=== PATIENT | male | born 1930 | race Caucasian/White ===

== ENCOUNTER 2017-05-06 19:39 | Emergency (ER) | payer MEDICARE ==
[~2017-05-06] VITALS: Ht 188 cm; Wt 108.9 kg
[~2017-05-06 19:39] MED LIST: ACET325T49 PO; ACHD5005 PO; ASPI-892 PO; Albuterol Sulfate INH; BCL10T PO; DCS100C PO; FEXO180T84 PO; FLUO20CA42 PO; FURO20TA PO; GABA300C PO; LEVO750T6 PO; MAGN-47 PO; OMEP-10 PO; POTA10TA36 PO; SIMV80TA3 PO; TMSL.4C PO; ZINC113C8 TP
--- OUTSIDE RECORDS SUMMARY | 2017-05-06 19:43 | XMS REPORT | Continuity of Care Document ---
Author Author [facility] Organization [facility] Address Unknown Phone Unavailable Allergies Active Description Code Type Severity Reaction Onset Reported/Identified Relationship to Patient Clinical Status Yes No Known Drug Allergies [id number] Drug Allergy Unknown N/A 08/15/2014 Medications There is no data. Problems Date Dx Coded Attending Type Code Diagnosis Diagnosed By 08/20/2014 CHANDLER MITCHELL MD Ot 272.0 08/20/2014 CHANDLER MITCHELL MD Ot 272.4 08/20/2014 CHANDLER MITCHELL MD Ot 276.8 08/20/2014 CHANDLER MITCHELL MD Ot 288.60 08/20/2014 CHANDLER MITCHELL MD Ot 311 08/20/2014 CAHNDLER MITCHELL MD Ot 355.9 08/20/2014 CHANDLER MITCHELL MD Ot 401.9 08/20/2014 CHANDLER MITCHELL MD Ot 414.01 08/20/2014 CHANDLER MITCHELL MD Ot 428.0 08/20/2014 CHANDLER MITCHELL MD Ot 438.20 08/20/2014 CHANDLER MITCHELL MD Ot 438.89 08/20/2014 CHANDLER MITCHELL MD Ot 477.9 08/20/2014 CHANDLER MITCHELL MD Ot 486 08/20/2014 CHANDLER MITCHELL MD Ot 530.81 08/20/2014 CHANDLER MITCHELL MD Ot 564.00 08/20/2014 CHANDLER MITCHELL MD Ot 599.0 08/20/2014 CHANDLER MITCHELL MD Ot 600.00 08/20/2014 CHANDLER MITCHELL MD Ot 728.85 08/20/2014 CHANDLER MITCHELL MD Ot 736.79 08/20/2014 CHANDLER MITCHELL MD Ot 790.29 08/20/2014 CHANDLER MITCHELL MD Ot 799.02 08/20/2014 CHANDLER MITCHELL MD Ot 038.9 SEPTICEMIA NOS 08/20/2014 CHANDLER MITCHELL MD Ot 272.0 PURE HYPERCHOLESTEROLEM 08/20/2014 CHANDLER MITCHELL MD Ot 272.4 HYPERLIPIDEMIA NEC/NOS 08/20/2014 CHANDLER MITCHELL MD Ot 276.8 HYPOPOTASSEMIA 08/20/2014 CHANDLER MITCHELL MD Ot 288.60 08/20/2014 CHANDLER MITCHELL MD Ot 311 DEPRESSIVE DISORDER NEC 08/20/2014 CHANDLER MITCHELL MD Ot 355.9 MONONEURITIS NOS 08/20/2014 CHANDLER MITCHELL MD Ot 401.9 HYPERTENSION NOS 08/20/2014 CHANDLER MITCHELL MD Ot 414.01 CORONARY ATHEROSCLEROSIS OF [place] CORON 08/20/2014 CHANDLER MITCHELL MD Ot 428.0 CONGESTIVE HEART FAILURE NOS 08/20/2014 CHANDLER MITCHELL MD Ot 438.20 LATE EFF-CEREBR DIS,HEMIPLEGIA AFFECTING 08/20/2014 CHANDLER MITCHELL MD Ot 438.89 OTH LATE EFFECT-CEREBROVASCULAR DISEASE 08/20/2014 CHANDLER MITCHELL MD Ot 477.9 ALLERGIC RHINITIS NOS 08/20/2014 CHANDLER MITCHELL MD Ot 486 PNEUMONIA, ORGANISM NOS 08/20/2014 CHANDLER MITCHELL MD Ot 530.81 ESOPHAGEAL REFLUX 08/20/2014 CHANDLER MITCHELL MD Ot 564.00 UNSPEC CONSTIPATION 08/20/2014 CHANDLER MITCHELL MD Ot 599.0 08/20/2014 CHANDLER MITCHELL MD Ot 600.00 HYPERTROPHY (BENIGN) OF PROSTATE W/O URI 08/20/2014 CHANDLER MITCHELL MD Ot 728.85 SPASM OF MUSCLE 08/20/2014 CHANDLER MITCHELL MD Ot 736.79 ACQ ANKLE-FOOT DEF NEC 08/20/2014 CHANDLER MITCHELL MD Ot 790.29 OTHER ABNORMAL GLUCOSE 08/20/2014 CHANDLER MITCHELL MD Ot 799.02 HYPOXEMIA 08/20/2014 CHANDLER MITCHELL MD Ot 995.91 SEPSIS 08/20/2014 CHANDLER MITCHELL MD Ot V49.86 DO NOT RESUSCITATE STATUS 01/13/2016 DAVID MCGEE DOI Ot E66.01 MORBID (SEVERE) OBESITY DUE TO EXCESS CA 01/13/2016 DAVID MCGEE DOI Ot E78.00 PURE HYPERCHOLESTEROLEMIA, UNSPECIFIED 01/13/2016 EVERARDO MILLER SHAKA Ot E78.5 HYPERLIPIDEMIA, UNSPECIFIED 01/13/2016 EVERARDO MILLER SHAKA Ot F32.9 MAJOR DEPRESSIVE DISORDER, SINGLE EPISOD 01/13/2016 DAVID MCGEE DOI Ot G47.33 OBSTRUCTIVE SLEEP APNEA (ADULT) (PEDIATR 01/13/2016 MCGEE DO, SHAKA Ot I10 ESSENTIAL (PRIMARY) HYPERTENSION 01/13/2016 SHAKA MCGEE DO Ot I25.10 ATHSCL HEART DISEASE OF [place] CORONARY 01/13/2016 SHAKA MCGEE DO Ot I44.0 ATRIOVENTRICULAR BLOCK, FIRST DEGREE 01/13/2016 SHAKA MCGEE DO Ot I49.3 VENTRICULAR PREMATURE DEPOLARIZATION 01/13/2016 SHAKA MCGEE DO Ot I69.354 HEMIPLGA FOLLOWING CEREBRAL INFRC AFFECT 01/13/2016 SHAKA MCGEE DO Ot J30.2 OTHER SEASONAL ALLERGIC RHINITIS 01/13/2016 SHAKA MCGEE DO Ot J98.11 ATELECTASIS 01/13/2016 SHAKA MCGEE DO Ot K21.9 GASTRO-ESOPHAGEAL REFLUX DISEASE WITHOUT 01/13/2016 SHAKA MCGEE DO Ot N40.0 BENIGN PROSTATIC HYPERPLASIA WITHOUT LOW 01/13/2016 SHAKA MCGEE DO Ot R06.89 OTHER ABNORMALITIES OF BREATHING 01/13/2016 SHAKA MCGEE DO Ot R09.02 HYPOXEMIA 01/13/2016 SHAKA MCGEE DO Ot S72.012A UNSP INTRACAPSULAR FRACTURE OF LEFT FEMU 01/13/2016 SHAKA MCGEE DO Ot W05.0XXA FALL FROM NON-MOVING WHEELCHAIR, INITIAL 01/13/2016 SHAKA MCGEE DO Ot Y92.[address] 01/13/2016 SHAKA MCGEE DO Ot Z66 DO NOT RESUSCITATE 01/13/2016 SHAKA MCGEE DO Ot Z68.36 BODY MASS INDEX (BMI) 36.0-36.9, ADULT 02/24/2016 YAN BOB APRN Ot M25.562 PAIN IN LEFT KNEE 03/18/2016 YAN BOB APRN Ot M25.562 PAIN IN LEFT KNEE 03/29/2016 YAN BOB APRN Ot M25.562 PAIN IN LEFT KNEE Procedures Code Description Performed By Performed On [id number] REPLACE L HIP JT, FEMORAL W METAL, UNCEM 01/11/2016 Results Test Result Range Complete blood count (CBC) with automated white blood cell (WBC) differential - 01/10/16 11:35 Blood leukocytes automated count (number/volume) 15.3 10*3/uL 4.3-11.0 Blood erythrocytes automated count (number/volume) 4.64 10*6/uL 4.35-5.85 Venous blood hemoglobin measurement (mass/volume) 12.9 g/dL 13.3-17.7 Blood hematocrit (volume fraction) 40 % 40-54 Automated erythrocyte mean corpuscular volume 85 [foz_us] 80-99 Automated erythrocyte mean corpuscular hemoglobin (mass per erythrocyte) 28 pg 25-34 Automated erythrocyte mean corpuscular hemoglobin concentration measurement ( mass/volume) 33 g/dL 32-36 Automated erythrocyte distribution width ratio 13.8 % 10.0-14.5 Automated blood platelet count (count/volume) 199 10*3/uL 130-400 Automated blood platelet mean volume measurement 11.3 [foz_us] 7.4-10.4 Automated blood neutrophils/100 leukocytes 85 % 42-75 Automated blood lymphocytes/100 leukocytes 8 % 12-44 Blood monocytes/100 leukocytes 7 % 0-12 Automated blood eosinophils/100 leukocytes 1 % 0-10 Automated blood basophils/100 leukocytes 0 % 0-10 Blood neutrophils automated count (number/volume) 13.0 10*3 1.8-7.8 Blood lymphocytes automated count (number/volume) 1.2 10*3 1.0-4.0 Blood monocytes automated count (number/volume) 1.0 10*3 0.0-1.0 Automated eosinophil count 0.1 10*3/uL 0.0-0.3 Automated blood basophil count (count/volume) 0.0 10*3/uL 0.0-0.1 PT panel in platelet poor plasma by coagulation assay - 01/10/16 11:35 Prothrombin time (PT) in platelet poor plasma by coagulation assay 13.7 s 12.2-14.7 INR in platelet poor plasma or blood by coagulation assay 1.1 0.8-1.4 Activated partial thromboplastin time (aPTT) in platelet poor plasma bycoagulation assay - 01/10/16 11:35 Activated partial thromboplastin time (aPTT) in platelet poor plasma bycoagulation assay 28 s 24-35 Blood manual differential performed detection - 01/10/16 11:35 Blood monocytes/100 leukocytes 7 % NRG Manual blood segmented neutrophils/100 leukocytes 75 % NRG Blood band neutrophils/100 leukocytes 6 % NRG Manual blood lymphocytes/100 leukocytes 12 % NRG Manual eosinophils/100 leukocytes in nose 0 % NRG Manual blood basophils/100 leukocytes 0 % [facility] Blood erythrocyte morphology finding identification NORMAL [facility] Comprehensive metabolic panel - 01/10/16 11:35 Serum or plasma sodium measurement (moles/volume) 137 mmol/L 135-145 Serum or plasma potassium measurement (moles/volume) 4.3 mmol/L 3.6-5.0 Serum or plasma chloride measurement (moles/volume) 104 mmol/L 98-107 Carbon dioxide 20 mmol/L 21-32 Serum or plasma anion gap determination (moles/volume) 13 mmol/L 5-14 Serum or plasma urea nitrogen measurement (mass/volume) 17 mg/dL 7-18 Serum or plasma creatinine measurement (mass/volume) 1.03 mg/dL 0.60-1.30 Serum or plasma urea nitrogen/creatinine mass ratio 17 NRG Serum or plasma creatinine measurement with calculation of estimated glomerular filtration rate > NRG Serum or plasma glucose measurement (mass/volume) 150 mg/dL 70-105 Serum or plasma calcium measurement (mass/volume) 8.8 mg/dL 8.5-10.1 Serum or plasma total bilirubin measurement (mass/volume) 0.7 mg/dL 0.1-1.0 Serum or plasma alkaline phosphatase measurement (enzymatic activity/volume) 114 U/L 40-136 Serum or plasma aspartate aminotransferase measurement (enzymatic activity/ volume) 15 U/L 5-34 Serum or plasma alanine aminotransferase measurement (enzymatic activity/volume ) 9 U/L 0-55 Serum or plasma protein measurement (mass/volume) 7.1 g/dL 6.4-8.2 Serum or plasma albumin measurement (mass/volume) 3.9 g/dL 3.2-4.5 IRON TEST - 01/10/16 11:35 Serum or plasma iron measurement (mass/volume) 70 % 40- 180 Complete urinalysis with reflex to culture - 01/10/16 11:50 Urine color determination YELLOW NRG Urine clarity determination CLEAR NRG Urine pH measurement by test strip 5 5-9 Specific gravity of urine by test strip 1.020 1.016- 1.022 Urine protein assay by test strip, semi-quantitative NEGATIVE NEGATIVE Urine glucose detection by automated test strip NEGATIVE NEGATIVE Erythrocytes detection in urine sediment by light microscopy NEGATIVE NEGATIVE Urine ketones detection by automated test strip NEGATIVE NEGATIVE Urine nitrite detection by test strip NEGATIVE NEGATIVE Urine total bilirubin detection by test strip NEGATIVE NEGATIVE Urine urobilinogen measurement by automated test strip (mass/volume) NORMAL NORMAL Urine leukocyte esterase detection by dipstick NEGATIVE NEGATIVE Automated urine sediment erythrocyte count by microscopy (number/high power field) NONE NRG Automated urine sediment leukocyte count by microscopy (number/high power field ) NONE NRG Bacteria detection in urine sediment by light microscopy NEGATIVE NRG Squamous epithelial cells detection in urine sediment by light microscopy RARE NRG Crystals detection in urine sediment by light microscopy NONE NRG Casts detection in urine sediment by light microscopy PRESENT NRG Mucus detection in urine sediment by light microscopy SMALL NRG Complete urinalysis with reflex to culture NO NRG Hyaline casts detection in urine sediment by light microscopy 0-2 NRG Methicillin resistant Staphylococcus aureus (MRSA) screening culture - 14:15 Methicillin resistant Staphylococcus aureus (MRSA) screening culture NEG NRG Blood type T Indirect antibody screen panel - 01/10/16 15:05 ABO+Rh group OP NRG Transfusion band number [id number] NRG Blood group antibody screen NEGATIVE NRG Complete blood count (CBC) with automated white blood cell (WBC) differential - 01/11/16 04:26 Blood leukocytes automated count (number/volume) 9.8 10*3/uL 4.3-11.0 Blood erythrocytes automated count (number/volume) 4.34 10*6/uL 4.35-5.85 Venous blood hemoglobin measurement (mass/volume) 12.1 g/dL 13.3-17.7 Blood hematocrit (volume fraction) 37 % 40-54 Automated erythrocyte mean corpuscular volume 85 [foz_us] 80-99 Automated erythrocyte mean corpuscular hemoglobin (mass per erythrocyte) 28 pg 25-34 Automated erythrocyte mean corpuscular hemoglobin concentration measurement ( mass/volume) 33 g/dL 32-36 Automated erythrocyte distribution width ratio 13.5 % 10.0-14.5 Automated blood platelet count (count/volume) 173 10*3/uL 130-400 Automated blood platelet mean volume measurement 11.1 [foz_us] 7.4-10.4 Automated blood neutrophils/100 leukocytes 77 % 42-75 Automated blood lymphocytes/100 leukocytes 10 % 12-44 Blood monocytes/100 leukocytes 8 % 0-12 Automated blood eosinophils/100 leukocytes 4 % 0-10 Automated blood basophils/100 leukocytes 0 % 0-10 Blood neutrophils automated count (number/volume) 7.5 10*3 1.8-7.8 Blood lymphocytes automated count (number/volume) 1.0 10*3 1.0-4.0 Blood monocytes automated count (number/volume) 0.8 10*3 0.0-1.0 Automated eosinophil count 0.4 10*3/uL 0.0-0.3 Automated blood basophil count (count/volume) 0.0 10*3/uL 0.0-0.1 Comprehensive metabolic panel - 01/11/16 04:26 Serum or plasma sodium measurement (moles/volume) 138 mmol/L 135-145 Serum or plasma potassium measurement (moles/volume) 4.1 mmol/L 3.6-5.0 Serum or plasma chloride measurement (moles/volume) 107 mmol/L 98-107 Carbon dioxide 21 mmol/L 21-32 Serum or plasma anion gap determination (moles/volume) 10 mmol/L 5-14 Serum or plasma urea nitrogen measurement (mass/volume) 13 mg/dL 7-18 Serum or plasma creatinine measurement (mass/volume) 0.85 mg/dL 0.60-1.30 Serum or plasma urea nitrogen/creatinine mass ratio 15 NRG Serum or plasma creatinine measurement with calculation of estimated glomerular filtration rate > NRG Serum or plasma glucose measurement (mass/volume) 169 mg/dL 70-105 Serum or plasma calcium measurement (mass/volume) 8.2 mg/dL 8.5-10.1 Serum or plasma total bilirubin measurement (mass/volume) 0.8 mg/dL 0.1-1.0 Serum or plasma alkaline phosphatase measurement (enzymatic activity/volume) 97 U/L 40-136 Serum or plasma aspartate aminotransferase measurement (enzymatic activity/ volume) 14 U/L 5-34 Serum or plasma alanine aminotransferase measurement (enzymatic activity/volume ) 12 U/L 0-55 Serum or plasma protein measurement (mass/volume) 6.4 g/dL 6.4-8.2 Serum or plasma albumin measurement (mass/volume) 3.4 g/dL 3.2-4.5 Complete blood count (CBC) with automated white blood cell (WBC) differential - 01/12/16 04:15 Blood leukocytes automated count (number/volume) 8.6 10*3/uL 4.3-11.0 Blood erythrocytes automated count (number/volume) 4.22 10*6/uL 4.35-5.85 Venous blood hemoglobin measurement (mass/volume) 11.7 g/dL 13.3-17.7 Blood hematocrit (volume fraction) 36 % 40-54 Automated erythrocyte mean corpuscular volume 85 [foz_us] 80-99 Automated erythrocyte mean corpuscular hemoglobin (mass per erythrocyte) 28 pg 25-34 Automated erythrocyte mean corpuscular hemoglobin concentration measurement ( mass/volume) 33 g/dL 32-36 Automated erythrocyte distribution width ratio 13.6 % 10.0-14.5 Automated blood platelet count (count/volume) 168 10*3/uL 130-400 Automated blood platelet mean volume measurement 11.5 [foz_us] 7.4-10.4 Automated blood neutrophils/100 leukocytes 66 % 42-75 Automated blood lymphocytes/100 leukocytes 16 % 12-44 Blood monocytes/100 leukocytes 13 % 0-12 Automated blood eosinophils/100 leukocytes 6 % 0-10 Automated blood basophils/100 leukocytes 0 % 0-10 Blood neutrophils automated count (number/volume) 5.7 10*3 1.8-7.8 Blood lymphocytes automated count (number/volume) 1.3 10*3 1.0-4.0 Blood monocytes automated count (number/volume) 1.1 10*3 0.0-1.0 Automated eosinophil count 0.5 10*3/uL 0.0-0.3 Automated blood basophil count (count/volume) 0.0 10*3/uL 0.0-0.1 Comprehensive metabolic panel - 01/12/16 04:15 Serum or plasma sodium measurement (moles/volume) 137 mmol/L 135-145 Serum or plasma potassium measurement (moles/volume) 3.7 mmol/L 3.6-5.0 Serum or plasma chloride measurement (moles/volume) 104 mmol/L 98-107 Carbon dioxide 22 mmol/L 21-32 Serum or plasma anion gap determination (moles/volume) 11 mmol/L 5-14 Serum or plasma urea nitrogen measurement (mass/volume) 10 mg/dL 7-18 Serum or plasma creatinine measurement (mass/volume) 0.96 mg/dL 0.60-1.30 Serum or plasma urea nitrogen/creatinine mass ratio 10 NRG Serum or plasma creatinine measurement with calculation of estimated glomerular filtration rate > NRG Serum or plasma glucose measurement (mass/volume) 155 mg/dL 70-105 Serum or plasma calcium measurement (mass/volume) 7.9 mg/dL 8.5-10.1 Serum or plasma total bilirubin measurement (mass/volume) 0.6 mg/dL 0.1-1.0 Serum or plasma alkaline phosphatase measurement (enzymatic activity/volume) 86 U/L 40-136 Serum or plasma aspartate aminotransferase measurement (enzymatic activity/ volume) 13 U/L 5-34 Serum or plasma alanine aminotransferase measurement (enzymatic activity/volume ) 7 U/L 0-55 Serum or plasma protein measurement (mass/volume) 6.0 g/dL 6.4-8.2 Serum or plasma albumin measurement (mass/volume) 3.1 g/dL 3.2-4.5 Serum or plasma phosphate measurement (mass/volume) - 01/12/16 04:15 Serum or plasma phosphate measurement (mass/volume) 2.4 mg/dL 2.3-4.7 Magnesium - 01/12/16 04:15 Magnesium 1.9 mg/dL 1.8-2.4 Complete blood count (CBC) with automated white blood cell (WBC) differential - 01/13/16 04:45 Blood leukocytes automated count (number/volume) 9.1 10*3/uL 4.3-11.0 Blood erythrocytes automated count (number/volume) 3.85 10*6/uL 4.35-5.85 Venous blood hemoglobin measurement (mass/volume) 10.7 g/dL 13.3-17.7 Blood hematocrit (volume fraction) 33 % 40-54 Automated erythrocyte mean corpuscular volume 86 [foz_us] 80-99 Automated erythrocyte mean corpuscular hemoglobin (mass per erythrocyte) 28 pg 25-34 Automated erythrocyte mean corpuscular hemoglobin concentration measurement ( mass/volume) 32 g/dL 32-36 Automated erythrocyte distribution width ratio 13.4 % 10.0-14.5 Automated blood platelet count (count/volume) 169 10*3/uL 130-400 Automated blood platelet mean volume measurement 11.5 [foz_us] 7.4-10.4 Automated blood neutrophils/100 leukocytes 68 % 42-75 Automated blood lymphocytes/100 leukocytes 15 % 12-44 Blood monocytes/100 leukocytes 11 % 0-12 Automated blood eosinophils/100 leukocytes 6 % 0-10 Automated blood basophils/100 leukocytes 0 % 0-10 Blood neutrophils automated count (number/volume) 6.2 10*3 1.8-7.8 Blood lymphocytes automated count (number/volume) 1.3 10*3 1.0-4.0 Blood monocytes automated count (number/volume) 1.0 10*3 0.0-1.0 Automated eosinophil count 0.6 10*3/uL 0.0-0.3 Automated blood basophil count (count/volume) 0.0 10*3/uL 0.0-0.1 Comprehensive metabolic panel - 01/13/16 04:45 Serum or plasma sodium measurement (moles/volume) 138 mmol/L 135-145 Serum or plasma potassium measurement (moles/volume) 3.6 mmol/L 3.6-5.0 Serum or plasma chloride measurement (moles/volume) 104 mmol/L 98-107 Carbon dioxide 23 mmol/L 21-32 Serum or plasma anion gap determination (moles/volume) 11 mmol/L 5-14 Serum or plasma urea nitrogen measurement (mass/volume) 11 mg/dL 7-18 Serum or plasma creatinine measurement (mass/volume) 0.82 mg/dL 0.60-1.30 Serum or plasma urea nitrogen/creatinine mass ratio 13 NRG Serum or plasma creatinine measurement with calculation of estimated glomerular filtration rate > NRG Serum or plasma glucose measurement (mass/volume) 160 mg/dL 70-105 Serum or plasma calcium measurement (mass/volume) 7.6 mg/dL 8.5-10.1 Serum or plasma total bilirubin measurement (mass/volume) 0.6 mg/dL 0.1-1.0 Serum or plasma alkaline phosphatase measurement (enzymatic activity/volume) 87 U/L 40-136 Serum or plasma aspartate aminotransferase measurement (enzymatic activity/ volume) 15 U/L 5-34 Serum or plasma alanine aminotransferase measurement (enzymatic activity/volume ) 9 U/L 0-55 Serum or plasma protein measurement (mass/volume) 5.8 g/dL 6.4-8.2 Serum or plasma albumin measurement (mass/volume) 3.0 g/dL 3.2-4.5 Encounters ACCT No. Visit Date/Time Discharge Status Pt. Type Provider Facility Loc./Unit Complaint [id number] 02/23/2016 11:28:00 02/23/2016 23:59:59 CLS Outpatient YAN BOB APRN [facility] RAD LT SIDED KNEE PAIN [id number] 01/10/2016 12:15:00 01/13/2016 14:33:00 DIS Inpatient SHAKA MCGEE DO [facility] 4TH L HIP FX [id number] 08/15/2014 15:04:00 08/20/2014 13:13:00 DIS Inpatient PAULA LUQUE, CHANDLER [place] [facility] 4TH PNEUMONIA
--- NOTE | 2017-05-06 19:44 | ED Upper Extremity ---
General Stated Complaint: L FINGER LAC Source: patient Exam Limitations: no limitations History of Present Illness Date Seen by Provider: May 06, 2017 Time Seen by Provider: 19:42 Initial Comments To ER per EMS from home at [facility] where he lives due to prior stroke with reports of Left middle finger laceration after having pinched it in some part of his wheelchair. He has left upper and lower extremity flaccidity as residual deficit of prior stroke Onset: just prior to arrival Severity: mild Pain/Injury Location: left 3rd finger Allergies and Home Medications Allergies Coded Allergies: No Known Drug Allergies (Unverified , 08/15/14) Home Medications Acetaminophen 325 Mg Tablet, 650 MG PO Q4H PRN for PAIN, (Reported) OR FEVER Aspirin 81 Mg Tabec, 81 MG PO DAILY, (Reported) Baclofen 10 Mg Tab, 5 MG PO BID, (Reported) TAKES 1/2 OF A (10 MG) TABLET Cephalexin 500 Mg Capsule, 500 MG PO TID, #9 Prescribed by: AFSHAN LEI on 05/06/172018 Docusate Sodium 100 Mg Cap, 100 MG PO BID, (Reported) Fexofenadine Hcl 180 Mg Tablet, 180 MG PO DAILY PRN for ALLERGIES, (Reported) Fluoxetine Hcl 20 Mg Capsule, 20 MG PO DAILY, (Reported) Furosemide 20 Mg Tablet, 20 MG PO DAILY, (Reported) Gabapentin 300 Mg Capsule, 300 MG PO TID, (Reported) Hydrocodone Bit/Acetaminophen 1 Each Tablet, 1 TAB PO 4 times a day PRN for PAIN , #30 Prescribed by: BRENDAN RUSH on 01/13/16 1059 Magnesium Hydroxide 400 Mg/5 Ml Oral.susp, 45 ML PO Q12H PRN for CONSTIPATION, ( Reported) Omeprazole 20 Mg Capsule.dr, 20 MG PO DAILY, (Reported) Potassium Chloride 10 Meq Tab.prt.sr, 10 MEQ PO DAILY, (Reported) Simvastatin 80 Mg Tablet, 80 MG PO HS, (Reported) Tamsulosin Hcl 0.4 Mg Cap, 0.4 MG PO HS, (Reported) Zinc Oxide 113 Gm Cream..g., TP PRN PRN for REDNESS, (Reported) APPLY TO BUTTOCKS Constitutional: see HPI EENTM: see HPI Respiratory: no symptoms reported Cardiovascular: no symptoms reported Genitourinary: no symptoms reported Musculoskeletal: no symptoms reported Skin: see HPI Psychiatric/Neurological: No Symptoms Reported Past Ldrhjto-Mvvbpu-Xpgevw Hx Patient Social History Recent Hopitalizations: No Immunizations Up To Date Date of Pneumonia Vaccine: Dec 19, 2013 Date of Influenza Vaccine: Jan 05, 2016 Seasonal Allergies Seasonal Allergies: Yes Surgeries Surgeries: Orthopedic Respiratory Respiratory Disorders: Pneumonia Cardiovascular Cardiac Disorders: Coronary Artery Disease, High Cholesterol, Hypertension Neurological Neurological Disorders: Stroke Reproductive System Hx Reproductive Disorders: No Sexually Transmitted Disease: No HIV/AIDS: No Genitourinary Genitourinary Disorders: Benign Prostatic Hyperpl Gastrointestinal Gastrointestinal Disorders: Gastroesophageal Reflux Musculoskeletal Musculoskeletal Disorders: Foot Drop HEENT Loss of Vision: Denies Hearing Impairment: Hard of Hearing Psychosocial Behavioral Health Disorders: Depression Integumentary Skin/Integumentary Disorders: Recent Skin Changes Blood Transfusions Adverse Reaction to a Blood Tr: No Family Medical History Significant Family History: No Pertinent Family Hx Family Medial History: Patient reports no known family medical history. Physical Exam Vital Signs Vital Signs - First Documented 05/06/17 19:39 Temp 95.9 Pulse 68 Resp 18 B/P (MAP) 111/67 (82) Pulse Ox 99 O2 Delivery Room Air Capillary Refill : General Appearance: WD/WN, no apparent distress HEENT: PERRL/EOMI, normal ENT inspection Neck: non-tender, full range of motion Respiratory: no respiratory distress, no accessory muscle use Gastrointestinal: normal bowel sounds, non tender Shoulder: normal inspection, non-tender Elbow/Forearm: normal inspection, non-tender Hand: non-tender, Left, laceration (1 cm laceration to the ulnar side distal phalanx left middle finger.) Neurologic/Psychiatric: alert, normal mood/affect, oriented x 3 Skin: normal color, warm/dry Laceration Repair : Wound Location: Upper Extremities Wound Length (cm): 1 Wound's Depth, Shape: sub Q Irrigated w/ Saline (ccs): 20 Anesthesia: 1% Lidocaine Suture: Prolene Suture Size: 5-0 Number of Sutures: 4 Layer Closure?: 1 Number Deep Layer Sutures: 0 Progress Finger was anesthetized with 1 mL of 2% lidocaine without epinephrine. Wound then scrubbed with chlorhexidine/saline solution then irrigated with 20 mL of the same. Closed with 4 simple interrupted sutures size 5-0 Prolene. Covered with Xeroform and tube gauze. Discharged to home. Progress/Results/Core Measures Results/Orders My Orders Orders - LEI,PETER J MEAT CUTTING BLOCK REPAIRER Dipht,Pertuss(Acell),Tet Adult (Boostrix (05/06/17 19:45) Cephalexin Capsule (Keflex Capsule) (05/06/17 19:45) Lidocaine 2% Injection 20 Ml (Xylocaine (05/06/17 19:45) Hand, Left, 3 Views (05/06/17 19:41) Medications Given in ED Current Medications Medications Dose Ordered Sig/Jw Route Start Time Stop Time Status Last Admin Dose Admin Cephalexin HCl 500 mg ONCE ONCE PO 05/06/17 19:45 05/06/17 19:46 DC 05/06/17 20:09 500 MG Diphtheria/ Tetanus/Acell Pertussis 0.5 ml ONCE ONCE IM 05/06/17 19:45 05/06/17 19:46 DC 05/06/17 20:09 0.5 ML Lidocaine HCl 20 ml ONCE ONCE INJ 05/06/17 19:45 05/06/17 19:46 DC 05/06/17 20:09 20 ML Vital Signs/I&O Vital Sign - Last 12Hours 05/06/17 19:39 Temp 95.9 Pulse 68 Resp 18 B/P (MAP) 111/67 (82) Pulse Ox 99 O2 Delivery Room Air Departure Impression Impression: Primary Impression: Finger laceration Additional Impression: Personal history of stroke with residual effects Disposition: 01 HOME, SELF-CARE Condition: Stable Departure-Patient Inst. Decision time for Depature: 19:43 Referrals: CHANDLER MITCHELL MD (PCP/Family) Primary Care Physician Patient Instructions: Laceration Repair With Stitches (DC) Add. Discharge Instructions: 1. Return to the emergency room in 7 days and stitches out or at your regular doctor's office, or the nurses at your intermediate may take the stitches out in 7-10 days. You may take this dressing off tomorrow and replaced with a simple Band-Aid. Antibiotics as directed Scripts Cephalexin (Keflex) 500 Mg Capsule 500 MG PO TID, #9 CAP Prov: AFSHAN LEI APRN 05/06/17 AFSHAN LEI APRN May 06, 2017 19:44
[2017-05-06] MEDS ORDERED: CEPHALEXIN 250 MG (KEFLEX) CAP PO ONE (19:45)
[2017-05-06] MEDS ORDERED: TETANUS,DIPTH,PERTUSS P/F (BOOSTRIX) 0.5 ML VIAL IM ONE (19:45)
[2017-05-06] MEDS ORDERED: LIDOCAINE 2% 20 ML (XYLOCAINE) VIAL INJ ONE (19:45)
--- NOTE | 2017-05-06 20:18 | Diagnostic Imaging Report ---
INDICATION: Laceration to middle finger. EXAMINATION: Left hand at 7:55 p.m. Three views were obtained. COMPARISON: There are no prior studies available for comparison. FINDINGS: There is no fracture, dislocation or acute bony abnormality evident. The laceration to the middle finger is not well appreciated. There is no radiopaque foreign body identified. The osseous structures are demineralized and there is degenerative disease involving the PIP and DIP joints. IMPRESSION: There is no evidence for an acute bony abnormality or for a radiopaque foreign body. Dictated by: Dictated on workstation # [id number]
[2017-05-06] MEDS ORDERED: CEPH-507 PO (20:19)
[2017-05-06 20:50] VITALS: BP 0/0
== END 2017-05-06 20:50 | disposition home or self-care (01) ==
LOC: ER 19:39 → EDUNIT# 19:39 → ER 20:50
DX: S61.231A Puncture wound without foreign body of left index finger without damage to nail, initial encounter (principal); I25.10 Atherosclerotic heart disease of native coronary artery without angina pectoris; E78.00 Pure hypercholesterolemia, unspecified; I10 Essential (primary) hypertension; K21.9 Gastro-esophageal reflux disease without esophagitis; F32.9 Major depressive disorder, single episode, unspecified; Z23 Encounter for immunization; Z86.73 Personal history of transient ischemic attack (TIA), and cerebral infarction without residual deficits; Z79.52 Long term (current) use of systemic steroids; Z87.01 Personal history of pneumonia (recurrent); W22.09XA Striking against other stationary object, initial encounter
CPT/HCPCS: 12001; 73130; 90715

== ENCOUNTER 2017-08-20 17:02 | Inpatient (IN) | payer MEDICARE ==
[~2017-08-20] VITALS: Ht 188 cm; Wt 109.3 kg
[~2017-08-20 17:02] MED LIST changes: +CEPH-507 PO
--- OUTSIDE RECORDS SUMMARY | 2017-08-20 17:02 | XMS REPORT | Continuity of Care Document ---
Author Author [facility] Organization [facility] Address Unknown Phone Unavailable Allergies Active Description Code Type Severity Reaction Onset Reported/Identified Relationship to Patient Clinical Status Yes No Known Drug Allergies [id number] Drug Allergy Unknown N/A 08/15/2014 Medications There is no data. Problems Date Dx Coded Attending Type Code Diagnosis Diagnosed By 08/20/2014 CHANDLER MITCHELL MD Ot 272.0 08/20/2014 CHANDLER MITCHELL MD Ot 272.4 08/20/2014 CHANDLER MITCHELL MD Ot 276.8 08/20/2014 CHANDLER MITCHELL MD Ot 288.60 08/20/2014 CHANDLER MITCHELL MD Ot 311 08/20/2014 CHANDLER MITCHELL MD Ot 355.9 08/20/2014 CHANDLER MITCHELL [...] MITCHELL MD Ot 414.01 CORONARY ATHEROSCLEROSIS OF [place] CORON 08/20/2014 CHANDLER MITCHELL MD Ot 428.0 [...] DO Ot I25.10 ATHSCL HEART DISEASE OF [place] CORONARY 01/13/2016 SHAKA MCGEE DO Ot I44.0 ATRIOVENTRICULAR BLOCK, FIRST DEGREE 01/13/2016 SHAKA MCGEE DO Ot I49.3 VENTRICULAR PREMATURE DEPOLARIZATION 01/13/2016 SHAKA MCGEE DO Ot I69.354 HEMIPLGA FOLLOWING CEREBRAL INFRC AFFECT 01/13/2016 SHAKA MCGEE DO Ot J30.2 OTHER SEASONAL ALLERGIC RHINITIS 01/13/2016 SHAKA MCGEE DO Ot J98.11 ATELECTASIS 01/13/2016 SHAKA MCGEE DO Ot K21.9 GASTRO-ESOPHAGEAL REFLUX DISEASE WITHOUT 01/13/2016 DAVID MCGEE DOI Ot N40.0 BENIGN PROSTATIC HYPERPLASIA WITHOUT LOW 01/13/2016 SHAKA MCGEE DO Ot R06.89 OTHER ABNORMALITIES OF BREATHING 01/13/2016 SHAKA MCGEE DO Ot R09.02 HYPOXEMIA 01/13/2016 SHAKA MCGEE DO Ot S72.012A UNSP INTRACAPSULAR FRACTURE OF LEFT FEMU 01/13/2016 SHAKA MCGEE DO Ot W05.0XXA FALL FROM NON-MOVING WHEELCHAIR, INITIAL 01/13/2016 SHAKA MCGEE DO Ot Y92.[address] 01/13/2016 SHAKA MCGEE DO Ot Z66 DO NOT RESUSCITATE 01/13/2016 SHAKA MCGEE DO Ot Z68.36 BODY MASS INDEX (BMI) 36.0-36.9, ADULT 02/24/2016 YAN BOB APRN Ot M25.562 PAIN IN LEFT KNEE 03/18/2016 YAN BOB APRN Ot M25.562 PAIN IN LEFT KNEE 03/29/2016 YAN BOB APRN Ot M25.562 PAIN IN LEFT KNEE 05/06/2017 AFSHAN LEI APRN Ot E78.00 PURE HYPERCHOLESTEROLEMIA, UNSPECIFIED 05/06/2017 AFSHAN LEI APRN Ot F32.9 MAJOR DEPRESSIVE DISORDER, SINGLE EPISOD 05/06/2017 AFSHAN LEI APRN Ot I10 ESSENTIAL (PRIMARY) HYPERTENSION 05/06/2017 AFSHAN LEI APRN Ot I25.10 ATHSCL HEART DISEASE OF [place] CORONARY 05/06/2017 AFSHAN LEI APRN Ot K21.9 GASTRO-ESOPHAGEAL REFLUX DISEASE WITHOUT 05/06/2017 AFSHAN LEI APRN Ot S61.213A LACERATION W/O FB OF L MID FINGER W/O DA 05/06/2017 AFSHAN LEI APRN Ot S61.231A PNCTR W/O FB OF L IDX FNGR W/O DAMAGE TO 05/06/2017 AFSHAN LEI APRN Ot W22.09XA STRIKING AGAINST OTHER STATIONARY OBJECT 05/06/2017 AFSHAN LEI APRN Ot Z23 ENCOUNTER FOR IMMUNIZATION 05/06/2017 AFSHAN LEI APRN Ot 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 05/06/2017 AFSHAN LEI APRN Ot Z86.73 PRSNL HX OF TIA (TIA), AND CEREB INFRC W 05/06/2017 AFSHAN LEI APRN Ot Z87.01 PERSONAL HISTORY OF PNEUMONIA (RECURRENT 05/09/2017 AFSHAN LEI APRN Ot E78.00 PURE HYPERCHOLESTEROLEMIA, UNSPECIFIED 05/09/2017 AFSHAN LEI APRN Ot F32.9 MAJOR DEPRESSIVE DISORDER, SINGLE EPISOD 05/09/2017 AFSHAN LEI APRN Ot I10 ESSENTIAL (PRIMARY) HYPERTENSION 05/09/2017 AFSHAN LEI APRN Ot I25.10 ATHSCL HEART DISEASE OF [place] CORONARY 05/09/2017 AFSHAN LEI APRN Ot K21.9 GASTRO-ESOPHAGEAL REFLUX DISEASE WITHOUT 05/09/2017 AFSHAN LEI APRN Ot S61.213A LACERATION W/O FB OF L MID FINGER W/O DA 05/09/2017 AFSHAN LEI APRN Ot S61.231A PNCTR W/O FB OF L IDX FNGR W/O DAMAGE TO 05/09/2017 AFSHAN LEI APRN Ot W22.09XA STRIKING AGAINST OTHER STATIONARY OBJECT 05/09/2017 AFSHAN LEI APRN Ot Z23 ENCOUNTER FOR IMMUNIZATION 05/09/2017 AFSHAN LEI APRN Ot Z79.52 NURSING HOME (CURRENT) USE OF SYSTEMIC STER 05/09/2017 AFSHAN LEI APRN Ot Z86.73 PRSNL HX OF TIA (TIA), AND CEREB INFRC W 05/09/2017 AFSHAN LEI APRN Ot Z87.01 PERSONAL HISTORY OF PNEUMONIA (RECURRENT Procedures Code Description Performed By Performed On [id number] REPLACE L HIP JT, FEMORAL W METAL, [...] NRG Manual blood basophils/100 leukocytes 0 % NRG Blood erythrocyte morphology finding identification NORMAL NR Comprehensive metabolic panel - 01/10/16 11:35 Serum [...] ABO+Rh group OP NRG Transfusion band number [id number] NRG Blood group antibody screen NEGATIVE NRG [...] Status Pt. Type Provider Facility Loc./Unit Complaint [id number] 05/06/2017 19:39:00 05/06/2017 20:50:00 DIS Emergency AFSHAN LEI APRN [facility] ER L FINGER LAC [id number] 02/23/2016 11:28:00 02/23/2016 23:59:59 CLS Outpatient YAN BOB APRN [facility] RAD LT SIDED KNEE PAIN [id number] 01/10/2016 12:15:00 01/13/2016 14:33:00 DIS Inpatient SHAKA MCGEE DO [facility] 4TH L HIP FX [id number] 08/15/2014 15:04:00 08/20/2014 13:13:00 DIS Inpatient PAULA LUQUE, CHANDLER [place] [facility] 4TH PNEUMONIA
--- OUTSIDE RECORDS SUMMARY | 2017-08-20 17:15 | XMS REPORT | Continuity of Care Document ---
Author Author [facility] Organization [facility] Address Unknown Phone Unavailable Allergies Active Description Code Type Severity Reaction Onset Reported/Identified Relationship to Patient Clinical Status Yes No Known Drug Allergies [id number] Drug Allergy Unknown N/A 08/15/2014 Medications There [...] Ot 414.01 CORONARY ATHEROSCLEROSIS OF [place] CORON 08/20/2014 CHANDLER MITCHELL MD Ot 428.0 [...] I25.10 ATHSCL HEART DISEASE OF [place] CORONARY 01/13/2016 SHAKA MGCEE DO Ot I44.0 ATRIOVENTRICULAR BLOCK, FIRST DEGREE [...] SHAKA MCGEE DO Ot Y92.122 BEDROOM IN HALF-WAY PLACE 01/13/2016 SHAKA MCGEE DO Ot Z66 [...] APRN Ot I25.10 ATHSCL HEART DISEASE OF [place] CORONARY 05/06/2017 AFSHAN LEI APRN Ot K21.9 [...] IMMUNIZATION 05/06/2017 AFSHAN LEI APRN Ot 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 Type Provider Facility Loc./Unit Complaint [id number] 05/06/2017 19:39:00 05/06/2017 20:50:00 DIS Emergency AFSHAN LEI APRN [facility] ER L FINGER LAC [id number] 02/23/2016 11:28:00 02/23/2016 23:59:59 CLS Outpatient YAN BOB APRN [facility] RAD LT SIDED KNEE PAIN [id number] 01/10/2016 12:15:00 01/13/2016 14:33:00 DIS Inpatient SHAKA MCGEE DO [facility] 4TH L HIP FX [id number] 08/15/2014 15:04:00 08/20/2014 13:13:00 DIS Inpatient PAULA LUQUE, CHANDLER [place] [facility] 4TH PNEUMONIA
--- NOTE | 2017-08-20 17:18 | ED GU-Male ---
General Stated Complaint: BLOOD IN URINE Source: patient, EMS, detention records History of Present Illness Date Seen by Provider: Aug 20, 2017 Time Seen by Provider: 17:03 Initial Comments PT ARRIVES VIA EMS FROM [facility] PT WAS NOTED TO HAVE HEMATURIA PRIOR TO ARRIVAL PT DOES C/O BURNING ON URINATION NO LOWER ABDOMINAL PAIN, BUT DOES HAVE LOWER BACK PAIN DENIES ANY NAUSEA/VOMITING/DIARRHEA DENIES ANY FEVER/SWEATS/CHILLS PT STATES HE DOES NOT TAKE ANY BLOOD THINNERS, BUT IS ON ASPIRIN DAILY--HAS HISTORY OF CVA WITH LEFT SIDE WEAKNESS PT DENIES ANY HISTORY OF SIMILAR PCP: DR. MITCHELL Allergies and Home Medications Allergies Coded Allergies: No Known Drug Allergies (Unverified , 08/15/14) Home Medications Acetaminophen 325 Mg Tablet, 650 MG PO Q4H PRN for PAIN, (Reported) OR FEVER Aspirin 81 Mg Tabec, 81 MG PO DAILY, (Reported) Baclofen 10 Mg Tab, 5 MG PO BID, (Reported) TAKES 1/2 OF A (10 MG) TABLET Cephalexin 500 Mg Capsule, 500 MG PO TID Prescribed by: AFSHAN LEI on 05/06/172018 Docusate Sodium 100 Mg Cap, 100 MG PO BID, (Reported) Fexofenadine Hcl 180 Mg Tablet, 180 MG PO DAILY PRN for ALLERGIES, (Reported) Fluoxetine Hcl 20 Mg Capsule, 20 MG PO DAILY, (Reported) Furosemide 20 Mg Tablet, 20 MG PO DAILY, (Reported) Gabapentin 300 Mg Capsule, 300 MG PO TID, (Reported) Hydrocodone Bit/Acetaminophen 1 Each Tablet, 1 TAB PO 4 times a day PRN for PAIN Prescribed by: BRENDAN RUSH on 01/13/16 1059 Magnesium Hydroxide 400 Mg/5 Ml Oral.susp, 45 ML PO Q12H PRN for CONSTIPATION, ( Reported) Omeprazole 20 Mg Capsule.dr, 20 MG PO DAILY, (Reported) Potassium Chloride 10 Meq Tab.prt.sr, 10 MEQ PO DAILY, (Reported) Simvastatin 80 Mg Tablet, 80 MG PO HS, (Reported) Tamsulosin Hcl 0.4 Mg Cap, 0.4 MG PO HS, (Reported) Zinc Oxide 113 Gm Cream..g., TP PRN PRN for REDNESS, (Reported) APPLY TO BUTTOCKS Patient Home Medication List Home Medication List Reviewed: Yes Review of Systems Constitutional: no symptoms reported Respiratory: no symptoms reported Cardiovascular: no symptoms reported Gastrointestinal: no symptoms reported Genitourinary: see HPI, burning, dysuria, flank pain, hematuria Musculoskeletal: see HPI, back pain Skin: no symptoms reported Psychiatric/Neurological: No Symptoms Reported Endocrine: No Symptoms Reported Hematologic/Lymphatic: See HPI Past [place]-Vdfrba-Fpatlw Hx Patient Social History Recent Hopitalizations: No Immunizations Up To Date Date of Pneumonia Vaccine: Dec 19, 2013 Date of Influenza Vaccine: Jan 05, 2016 Seasonal Allergies Seasonal Allergies: Yes Past Medical History Surgeries: Yes (LEFT KNEE SCOPE; LEFT HIP REPLACEMENT) Joint Replacement, Orthopedic Respiratory: Yes Pneumonia Cardiac: Yes (CHF) Chronic Edema/Swelling, Coronary Artery Disease, High Cholesterol, Hypertension Neurological: Yes (LEFT SIDE WEAKNESS AND SPASMS) Stroke Reproductive Disorders: No Sexually Transmitted Disease: No HIV/AIDS: No Genitourinary: Yes Benign Prostatic Hyperpl Gastrointestinal: Yes Gastroesophageal Reflux Musculoskeletal: Yes (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 No Pertinent Family Hx Physical Exam Vital Signs Vital Signs - First Documented 08/20/17 17:04 Temp 98.0 Pulse 66 Resp 20 B/P (MAP) 108/67 (81) Pulse Ox 97 O2 Delivery Room Air Capillary Refill : General Appearance: WD/WN, no apparent distress Neck: non-tender Cardiovascular: regular rate, rhythm, no murmur Respiratory: normal breath sounds, no respiratory distress (BUT BREATHING IS SLIGHTLY LABORED--PT DOES NOT C/O FEELING SHORT OF BREATH), no accessory muscle use, decreased breath sounds (IN BASES BILATERALLY) Gastrointestinal: normal bowel sounds, non tender, soft Back: no CVA tenderness Extremities: non-tender, no calf tenderness, normal capillary refill, pedal edema (1+ BILATERALLY. MULTIPLE SCABBED WOUNDS TO ANTERIOR ASPECT OF LOWER LEGS BILATERALLY. 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, alert, normal mood/affect, oriented x 3, other (LEFT SIDE WEAKNESS--PRE-EXISTING) Skin: normal color, warm/dry Procedures/Interventions Suture Size: 5-0 Progress/Results/Core Measures Suspected Sepsis SIRS Temperature: Pulse: Respiratory Rate: Laboratory Tests 08/20/17 17:30: White Blood Count 13.8H Blood Pressure / Mean: Laboratory Tests 08/20/17 17:30: Creatinine 0.90, INR Comment 1.1, Platelet Count 253, Total Bilirubin 0.6 Results/Orders Lab Results Laboratory Tests Test 08/20/17 17:30 08/20/17 17:53 Range/Units White Blood Count 13.8 H 4.3-11.0 10^3/uL Red Blood Count 4.76 4.35-5.85 10^6/uL Hemoglobin 13.3 13.3-17.7 G/DL Hematocrit 41 40-54 % Mean Corpuscular Volume 86 80-99 FL Mean Corpuscular Hemoglobin 28 25-34 PG Mean Corpuscular Hemoglobin Concent 33 32-36 G/DL Red Cell Distribution Width 13.8 10.0-14.5 % Platelet Count 253 130-400 10^3/uL Mean Platelet Volume 10.8 H 7.4-10.4 FL Neutrophils (%) (Auto) 79 H 42-75 % Lymphocytes (%) (Auto) 9 L 12-44 % Monocytes (%) (Auto) 8 0-12 % Eosinophils (%) (Auto) 4 0-10 % Basophils (%) (Auto) 0 0-10 % Neutrophils # (Auto) 10.9 H 1.8-7.8 X 10^3 Lymphocytes # (Auto) 1.2 1.0-4.0 X 10^3 Monocytes # (Auto) 1.1 H 0.0-1.0 X 10^3 Eosinophils # (Auto) 0.5 H 0.0-0.3 10^3/uL Basophils # (Auto) 0.0 0.0-0.1 10^3/uL Prothrombin Time 14.0 12.2-14.7 SEC INR Comment 1.1 0.8-1.4 Activated Partial Thromboplast Time 30 24-35 SEC Sodium Level 138 135-145 MMOL/L Potassium Level 4.4 3.6-5.0 MMOL/L Chloride Level 106 98-107 MMOL/L Carbon Dioxide Level 22 21-32 MMOL/L Anion Gap 10 5-14 MMOL/L Blood Urea Nitrogen 17 7-18 MG/DL Creatinine 0.90 0.60-1.30 MG/DL Estimat Glomerular Filtration Rate > 60 BUN/Creatinine Ratio 19 Glucose Level 115 H 70-105 MG/DL Calcium Level 9.2 8.5-10.1 MG/DL Total Bilirubin 0.6 0.1-1.0 MG/DL Aspartate Amino Transf (AST/SGOT) 12 5-34 U/L Alanine Aminotransferase (ALT/SGPT) 11 0-55 U/L Alkaline Phosphatase 109 40-136 U/L Total Protein 7.8 6.4-8.2 GM/DL Albumin 4.1 3.2-4.5 GM/DL Urine Color RED H Urine Clarity BLOODY H Urine pH 6.5 5-9 Urine Specific [place] 1.020 1.016-1.022 Urine Protein 4+ NEGATIVE Urine Glucose (UA) NEGATIVE NEGATIVE Urine Ketones NEGATIVE NEGATIVE Urine Nitrite NEGATIVE NEGATIVE Urine Bilirubin NEGATIVE NEGATIVE Urine Urobilinogen NORMAL NORMAL MG/DL Urine Leukocyte Esterase 1+ H NEGATIVE Urine RBC (Auto) 5+ H NEGATIVE Urine RBC TNTC H /HPF Urine WBC 50-100 H /HPF Urine Crystals NONE /LPF Urine Bacteria MODERATE H /HPF Urine Casts NONE /LPF Urine Mucus NEGATIVE /LPF Urine Culture Indicated YES My Orders Orders - RUSSELL CAPONE DO Saline Lock/Iv-Start (08/20/17 17:10) Ct Abd/Pelvis Wo(Kidney Stone) (08/20/17 17:10) Cbc With Automated Diff (08/20/17 17:10) Comprehensive Metabolic Panel (08/20/17 17:10) Protime With Inr (08/20/17 17:10) Partial Thromboplastin Time (08/20/17 17:10) Ua Culture If Indicated (08/20/17 17:10) Abdomen/Kub 1view (08/20/17 17:10) Ceftriaxone Injection (Rocephin Injectio (08/20/17 18:15) Urine Culture (08/20/17 17:53) Medications Given in ED Current Medications Medications Dose Ordered Sig/Wj Route Start Time Stop Time Status Last Admin Dose Admin Ceftriaxone Sodium 1000 mg/ Sodium Chloride 50 ml @ 100 mls/hr ONCE ONCE IV 08/20/17 18:15 08/20/17 18:44 08/20/17 18:25 100 MLS/HR Vital Signs/I&O 08/20/17 17:04 Temp 98.0 Pulse 66 Resp 20 B/P (MAP) 108/67 (81) Pulse Ox 97 O2 Delivery Room Air Capillary Refill : Progress Note : Progress Note UNEVENTFUL ER STAY Diagnostic Imaging Comments KUB--LEFT HIP REPLACEMENT, NO ACUTE PROCESS CT ABDOMEN/PELVIS--LEFT PLEURAL EFFUSION AND INFILTRATE/ATELECTASIS, DECOMPRESSED BLADDER. ARTIFACT FROM LEFT HIP REPLACEMENT. ENLARGED PROSTATE. NO ACUTE INTRA-ABDOMINAL PROCESS PER RADIOLOGIST REPORTS @ 1757 Reviewed: Reviewed by Me Departure Communication (Admissions) 1807--SPOKE WITH DR. IRVIN, ACCEPTS PT FOR ADMIT. Impression Primary Impression: UTI WITH GROSS HEMATURIA Additional Impression: LEFT PLEURAL EFFUSION WITH ATELECTASIS/INFILTRATE Disposition: ADMITTED INPATIENT Condition: Stable Admissions Decision to Admit Reason: Admit from ER (General) Decision to Admit/Date: Aug 20, 2017 Time/Decision to Admit Time: 18:05 Departure-Patient Inst. Referrals: CHANDLER MITCHELL MD (PCP/Family) Primary Care Physician RUSSELL CAPONE DO Aug 20, 2017 17:18
[2017-08-20 17:49] LABS: BASOPHILS % (AUTO) 0 % (0-10); EOSINOPHILS # (AUTO) 0.5 10^3/uL (0.0-0.3); EOSINOPHILS % (AUTO) 4 % (0-10); HEMATOCRIT 41 % (40-54); HEMOGLOBIN 13.3 G/DL (13.3-17.7); LYMPHOCYTES # (AUTO) 1.2 X 10^3 (1.0-4.0); LYMPHOCYTES % (AUTO) 9 % (12-44); MEAN CORPUSCULAR HEMOGLOBIN 28 PG (25-34); MEAN CORPUSCULAR HGB CONC 33 G/DL (32-36); MEAN CORPUSCULAR VOLUME 86 FL (80-99); MEAN PLATELET VOLUME 10.8 FL (7.4-10.4); MONOCYTES # (AUTO) 1.1 X 10^3 (0.0-1.0); MONOCYTES % (AUTO) 8 % (0-12); NEUTROPHILS # (AUTO) 10.9 X 10^3 (1.8-7.8); NEUTROPHILS % (AUTO) 79 % (42-75); PLATELET COUNT 253 10^3/uL (130-400); RED BLOOD COUNT 4.76 10^6/uL (4.35-5.85); RED CELL DISTRIBUTION WIDTH 13.8 % (10.0-14.5); WHITE BLOOD COUNT 13.8 10^3/uL (4.3-11.0)
[2017-08-20 17:53] LABS: INR 1.1 (0.8-1.4)
--- NOTE | 2017-08-20 17:53 | Diagnostic Imaging Report ---
PROCEDURE: CT urinary tract, rule out kidney stone. TECHNIQUE: Multiple contiguous axial images were obtained through the abdomen and pelvis without the use of intravenous contrast. INDICATION: Low back pain. Hematuria. FINDINGS: There is left basilar effusion with left lower lobe consolidated infiltrate and atelectasis. Liver appears normal. Gallbladder and bile ducts are normal. The pancreas is normal. The spleen is normal. The adrenal glands appear normal. The kidneys show no evidence of obstruction or calculi. No perinephric edema. The stomach is not distended. Small bowel is not dilated. There is considerable motion artifact present from respiration. Colon shows normal stool and gas pattern. The appendix is visualized and normal. There are no findings to suggest diverticulitis. The lower pelvis is not well visualized due to beam hardening artifact from left hip arthroplasty. The prostate does appear enlarged. Bladder is decompressed. No blastic or lytic bony lesion. IMPRESSION: 1. No evidence of renal calculi or hydronephrosis. Bladder is decompressed. Pelvic detail very limited due to beam hardening artifact. 2. No acute intra-abdominal findings. Dictated by: Dictated on workstation # [id number]
--- NOTE | 2017-08-20 17:56 | Diagnostic Imaging Report ---
INDICATION: Blood in urine. Back pain. FINDINGS: AP pelvis shows left hip arthroplasty. Femoral and acetabular components appearing in good alignment. There are no bony fractures. Bony pelvis is intact. There are no pathologic calcifications noted in the pelvis. IMPRESSION: Arthroplasty left hip with no other abnormalities demonstrated. Dictated by: Dictated on workstation # [id number]
[2017-08-20 18:00] LABS: BILIRUBIN,URINE NEGATIVE (NEGATIVE); CLARITY,URINE BLOODY; COLOR,URINE RED; GLUCOSE, URINE (UA) NEGATIVE (NEGATIVE); KETONES,URINE NEGATIVE (NEGATIVE); LEUKOCYTE ESTERASE ,URINE 1+ (NEGATIVE); NITRITE,URINE NEGATIVE (NEGATIVE); PH,URINE 6.5 (5-9); PROTEIN,URINE 4+ (NEGATIVE); UROBILINOGEN,URINE NORMAL (NORMAL)
[2017-08-20 18:02] LABS: ALANINE AMINOTRANSFERASE 11 U/L (0-55); ALBUMIN 4.1 GM/DL (3.2-4.5); ALKALINE PHOSPHATASE 109 U/L (40-136); BILIRUBIN,TOTAL 0.6 MG/DL (0.1-1.0); BUN/CREATININE RATIO 19; CALCIUM 9.2 MG/DL (8.5-10.1); CARBON DIOXIDE 22 MMOL/L (21-32); CHLORIDE 106 MMOL/L (98-107); GFR ESTIMATED > 60; GLUCOSE 115 MG/DL (70-105); POTASSIUM 4.4 MMOL/L (3.6-5.0); SODIUM 138 MMOL/L (135-145); TOTAL PROTEIN 7.8 GM/DL (6.4-8.2)
[2017-08-20 18:04] LABS: BACTERIA,URINE MODERATE /HPF; RBC,URINE TNTC /HPF; WBC,URINE 50-100 /HPF
[2017-08-20] MEDS ORDERED: cefTRIAXone INJECTION 1,000 MG in NS (IVPB) 50 ML IV ONE (18:15)
--- OUTSIDE RECORDS SUMMARY | 2017-08-20 18:32 | XMS REPORT | Continuity of Care Document ---
Author Author [facility] Organization [facility] Address Unknown Phone Unavailable Allergies Active Description Code Type Severity Reaction Onset Reported/Identified Relationship to Patient Clinical Status Yes No Known Drug Allergies [id number] Drug Allergy Unknown N/A 08/15/2014 Medications There [...] MITCHELL MD Ot 414.01 CORONARY ATHEROSCLEROSIS OF [place] CORON 08/20/2014 CHANDLER MITCHELL MD Ot 428.0 [...] DO Ot I25.10 ATHSCL HEART DISEASE OF [place] CORONARY 01/13/2016 SHAKA MCGEE DO Ot I44.0 [...] SHAKA MCGEE DO Ot Y92.[address] 01/13/2016 SHAKA MCGEE DO Ot Z66 [...] APRN Ot I25.10 ATHSCL HEART DISEASE OF [place] CORONARY 05/06/2017 AFSHAN LEI APRN Ot K21.9 [...] IMMUNIZATION 05/06/2017 AFSHAN LEI APRN Ot Z79.52 STEAM TENDER (CURRENT) USE OF SYSTEMIC STER 05/06/2017 AFSHAN [...] APRN Ot I25.10 ATHSCL HEART DISEASE OF [place] CORONARY 05/09/2017 AFSHAN LEI APRN Ot K21.9 [...] IMMUNIZATION 05/09/2017 AFSHAN LEI APRN Ot Z79.52 LONGTERM (CURRENT) USE OF SYSTEMIC STER 05/09/2017 AFSHAN LEI APRN Ot Z86.73 PRSNL HX OF TIA (TIA), AND CEREB INFRC W 05/09/2017 AFSHAN LEI APRN Ot Z87.01 PERSONAL HISTORY OF PNEUMONIA (RECURRENT Procedures Code Description Performed By Performed On [id number] REPLACE L HIP JT, FEMORAL W METAL, [...] ABO+Rh group OP NRG Transfusion band number [id number] NRG Blood group antibody screen NEGATIVE NRG [...] plasma albumin measurement (mass/volume) 3.0 g/dL 3.2-4.5 Complete blood count (CBC) with automated white blood cell (WBC) differential - 08/20/17 17:30 Blood leukocytes automated count (number/volume) 13.8 10*3/uL 4.3-11.0 Blood erythrocytes automated count (number/volume) 4.76 10*6/uL 4.35-5.85 Venous blood hemoglobin measurement (mass/volume) 13.3 g/dL 13.3-17.7 Blood hematocrit (volume fraction) 41 % 40-54 Automated erythrocyte mean corpuscular volume 86 [foz_us] 80-99 Automated erythrocyte mean corpuscular hemoglobin (mass per erythrocyte) 28 pg 25-34 Automated erythrocyte mean corpuscular hemoglobin concentration measurement ( mass/volume) 33 g/dL 32-36 Automated erythrocyte distribution width ratio 13.8 % 10.0-14.5 Automated blood platelet count (count/volume) 253 10*3/uL 130-400 Automated blood platelet mean volume measurement 10.8 [foz_us] 7.4-10.4 Automated blood neutrophils/100 leukocytes 79 % 42-75 Automated blood lymphocytes/100 leukocytes 9 % 12-44 Blood monocytes/100 leukocytes 8 % 0-12 Automated blood eosinophils/100 leukocytes 4 % 0-10 Automated blood basophils/100 leukocytes 0 % 0-10 Blood neutrophils automated count (number/volume) 10.9 10*3 1.8-7.8 Blood lymphocytes automated count (number/volume) 1.2 10*3 1.0-4.0 Blood monocytes automated count (number/volume) 1.1 10*3 0.0-1.0 Automated eosinophil count 0.5 10*3/uL 0.0-0.3 Automated blood basophil count (count/volume) 0.0 10*3/uL 0.0-0.1 PT panel in platelet poor plasma by coagulation assay - 08/20/17 17:30 Prothrombin time (PT) in platelet poor plasma by coagulation assay 14.0 s 12.2-14.7 INR in platelet poor plasma or blood by coagulation assay 1.1 0.8-1.4 Activated partial thromboplastin time (aPTT) in platelet poor plasma bycoagulation assay - 08/20/17 17:30 Activated partial thromboplastin time (aPTT) in platelet poor plasma bycoagulation assay 30 s 24-35 Comprehensive metabolic panel - 08/20/17 17:30 Serum or plasma sodium measurement (moles/volume) 138 mmol/L 135-145 Serum or plasma potassium measurement (moles/volume) 4.4 mmol/L 3.6-5.0 Serum or plasma chloride measurement (moles/volume) 106 mmol/L 98-107 Carbon dioxide 22 mmol/L 21-32 Serum or plasma anion gap determination (moles/volume) 10 mmol/L 5-14 Serum or plasma urea nitrogen measurement (mass/volume) 17 mg/dL 7-18 Serum or plasma creatinine measurement (mass/volume) 0.90 mg/dL 0.60-1.30 Serum or plasma urea nitrogen/creatinine mass ratio 19 NRG Serum or plasma creatinine measurement with calculation of estimated glomerular filtration rate > NRG Serum or plasma glucose measurement (mass/volume) 115 mg/dL 70-105 Serum or plasma calcium measurement (mass/volume) 9.2 mg/dL 8.5-10.1 Serum or plasma total bilirubin measurement (mass/volume) 0.6 mg/dL 0.1-1.0 Serum or plasma alkaline phosphatase measurement (enzymatic activity/volume) 109 U/L 40-136 Serum or plasma aspartate aminotransferase measurement (enzymatic activity/ volume) 12 U/L 5-34 Serum or plasma alanine aminotransferase measurement (enzymatic activity/volume ) 11 U/L 0-55 Serum or plasma protein measurement (mass/volume) 7.8 g/dL 6.4-8.2 Serum or plasma albumin measurement (mass/volume) 4.1 g/dL 3.2-4.5 Complete urinalysis with reflex to culture - 08/20/17 17:53 Urine color determination RED NRG Urine clarity determination BLOODY NRG Urine pH measurement by test strip 6.5 5-9 Specific gravity of urine by test strip 1.020 1.016- 1.022 Urine protein assay by test strip, semi-quantitative 4+ NEGATIVE Urine glucose detection by automated test strip NEGATIVE NEGATIVE Erythrocytes detection in urine sediment by light microscopy 5+ NEGATIVE Urine ketones detection by automated test strip NEGATIVE NEGATIVE Urine nitrite detection by test strip NEGATIVE NEGATIVE Urine total bilirubin detection by test strip NEGATIVE NEGATIVE Urine urobilinogen measurement by automated test strip (mass/volume) NORMAL NORMAL Urine leukocyte esterase detection by dipstick 1+ NEGATIVE Automated urine sediment erythrocyte count by microscopy (number/high power field) TNTC NRG Automated urine sediment leukocyte count by microscopy (number/high power field ) [HPF] NRG Bacteria detection in urine sediment by light microscopy MODERATE NRG Crystals detection in urine sediment by light microscopy NONE NRG Casts detection in urine sediment by light microscopy NONE NRG Mucus detection in urine sediment by light microscopy NEGATIVE NRG Complete urinalysis with reflex to culture YES NRG Encounters ACCT No. Visit Date/Time Discharge Status Pt. Type Provider Facility Loc./Unit Complaint [id number] 05/06/2017 19:39:00 05/06/2017 20:50:00 DIS Emergency AFSHAN LEI HEARING AIDE TECHNICIAN [facility] ER L FINGER LAC [id number] 02/23/2016 11:28:00 02/23/2016 23:59:59 CLS Outpatient YAN BOB APRN [facility] RAD LT SIDED KNEE PAIN [id number] 01/10/2016 12:15:00 01/13/2016 14:33:00 DIS Inpatient SHAKA MCGEE DO [facility] 4TH L HIP FX [id number] 08/15/2014 15:04:00 08/20/2014 13:13:00 DIS Inpatient PAULA LUQUE, CHANDLER [place] [facility] 4TH PNEUMONIA [id number] 08/20/2017 17:50:00 Document Registration
[2017-08-20 19:00] VITALS: BP 130/62
[2017-08-20] MEDS ORDERED: 1/2 NS IV SOLUTION 1,000 ML IV ONE (20:21)
[2017-08-20] MEDS: 1/2 NS IV SOLUTION 1,000 ML IV SCH (20:28)
[2017-08-21] VITALS (7 sets, daily range): BP systolic 106–135; BP diastolic 59–70
[2017-08-21 04:37] LABS: BASOPHILS % (AUTO) 0 % (0-10); EOSINOPHILS # (AUTO) 0.4 10^3/uL (0.0-0.3); EOSINOPHILS % (AUTO) 3 % (0-10); HEMATOCRIT 39 % (40-54); HEMOGLOBIN 12.6 G/DL (13.3-17.7); LYMPHOCYTES # (AUTO) 1.1 X 10^3 (1.0-4.0); LYMPHOCYTES % (AUTO) 9 % (12-44); MEAN CORPUSCULAR HGB CONC 33 G/DL (32-36); MEAN CORPUSCULAR VOLUME 84 FL (80-99); MEAN PLATELET VOLUME 10.3 FL (7.4-10.4); MONOCYTES # (AUTO) 0.8 X 10^3 (0.0-1.0); MONOCYTES % (AUTO) 7 % (0-12); NEUTROPHILS # (AUTO) 9.6 X 10^3 (1.8-7.8); NEUTROPHILS % (AUTO) 81 % (42-75); PLATELET COUNT 247 10^3/uL (130-400); RED BLOOD COUNT 4.59 10^6/uL (4.35-5.85); WHITE BLOOD COUNT 11.9 10^3/uL (4.3-11.0)
[2017-08-21 04:41] LABS: MEAN CORPUSCULAR HEMOGLOBIN 27 PG (25-34)
[2017-08-21 05:02] LABS: ALANINE AMINOTRANSFERASE < 6 U/L (0-55); ALBUMIN 3.4 GM/DL (3.2-4.5); ALKALINE PHOSPHATASE 97 U/L (40-136); BILIRUBIN,TOTAL 0.8 MG/DL (0.1-1.0); BUN/CREATININE RATIO 18; CALCIUM 8.6 MG/DL (8.5-10.1); CARBON DIOXIDE 19 MMOL/L (21-32); CHLORIDE 107 MMOL/L (98-107); CREATININE SERUM 0.74 MG/DL (0.60-1.30); GFR ESTIMATED > 60; GLUCOSE 131 MG/DL (70-105); POTASSIUM 4.1 MMOL/L (3.6-5.0); SODIUM 136 MMOL/L (135-145); TOTAL PROTEIN 6.8 GM/DL (6.4-8.2)
[2017-08-21] MEDS: 1/2 NS IV SOLUTION 1,000 ML IV SCH ×2 (06:08→16:22)
[2017-08-21] MEDS ORDERED: SIMV80TA2 PO (09:01)
[2017-08-21] MEDS ORDERED: FLUO10CA29 PO (09:01)
[2017-08-21] MEDS ORDERED: POLY17PO6 PO (09:01)
[2017-08-21] MEDS ORDERED: FLUT16SP22 NS (09:01)
[2017-08-21] MEDS ORDERED: LATA2.5D5 OU (09:01)
[2017-08-21] MEDS ORDERED: FAMO-119 PO (09:01)
[2017-08-21] MEDS ORDERED: TIMO5DRO31 OU (09:01)
[2017-08-21] MEDS ORDERED: DORZ10DR18 OU (09:01)
[2017-08-21] MEDS ORDERED: BACL10TA PO (09:01)
[2017-08-21] MEDS ORDERED: HYDR-3820 PO (09:04)
[2017-08-21] MEDS ORDERED: DIPH25CA79 PO (09:04)
[2017-08-21] MEDS ORDERED: CATHETER FLUSH 10 ML SYR IV PRN (09:15)
[2017-08-21] MEDS: HYDROcodone/APAP 10 MG/325 MG (LORTAB) TAB PO PRN ×2 (09:38→17:53)
--- NOTE | 2017-08-21 10:16 | History & Physical-Hospitalist ---
History of Present Illness HPI/Chief Complaint Pt is an 86yoCM with a PMH of CVA, CAD, HTN, HLD who presented to the ER from [facility] for evaluation on hematuria. He does not know when it started. He states the nurse told him yesterday that there was blood in his urine but that was the first time he had noticed it. He has noticed dysuria for the past few days. He also states his "dribbling" has been worse then normal and he has increased frequency. He otherwise has not complaints. He does not normally have a catheter in place. he denies a history of hematuria in the past. He was febrile this morning on vitals check but he denies any fever or chills. Source: patient Exam Limitations: no limitations Date Seen 08/21/17 Time Seen by Provider: 10:14 Attending Physician Carloz Meyers MD PCP Carloz Meyers MD Referring Physician Date of Admission Aug 20, 2017 at 18:27 Home Medications & Allergies Home Medications Reviewed patient Home Medication Reconciliation performed by pharmacy medication reconciliations technician support association and/or nursing. Patients Allergies have been reviewed. Allergies Allergies Coded Allergies No Known Drug Allergies (Unverified08/15/14) Past Sqmnmaw-Acylua-Rhrpyf Hx Past Med/Social Hx: Reviewed Nursing Past Med/Soc Hx Patient Social History Employed/Student: retired Alcohol Use: Past History Recreational Drug Use: No Smoking Status: Never a Smoker Physical Abuse Screen: No Sexual Abuse: No Recent Foreign Travel: No Contact w/other who traveled: No Recent Hopitalizations: No Recent Infectious Disease Expo: No Immunizations Up To Date Pediatric: No Date of Pneumonia Vaccine: Dec 26, 2015 Date of Influenza Vaccine: Jan 05, 2016 Seasonal Allergies Seasonal Allergies: No Past Medical History Surgeries: Joint Replacement, Orthopedic Respiratory: Pneumonia Cardiac: Chronic Edema/Swelling, Coronary Artery Disease, High Cholesterol, Hypertension Neurological: Stroke Reproductive: No Sexually Transmitted Disease: No HIV/AIDS: No Genitourinary: Benign Prostatic Hyperpl, Prostate Problems Gastrointestinal: Gastroesophageal Reflux Musculoskeletal: Chronic Back Pain HEENT: Glaucoma Loss of Vision: Denies Hearing Impairment: Hard of Hearing Psychosocial: Depression Skin/Integumentary: Recent Skin Changes History of Blood Disorders: No Adverse Reaction to Blood Diaz: No Family History Patient reports no known family medical history. No Pertinent Family Hx Review of Systems Constitutional: No chills, No fever EENTM: No blurred vision, No double vision, No nose congestion, No throat pain Respiratory: No cough, No dyspnea on exertion, No short of breath Cardiovascular: No chest pain, No edema, No palpitations Gastrointestinal: No abdominal pain, No constipation, No diarrhea, No nausea, No vomiting Genitourinary: dysuria, frequency, hematuria, hesitancy Musculoskeletal: No joint pain, No muscle pain Skin: No lesions, No rash Psychiatric/Neurological: Denies Headache, Denies Numbness, Denies Tingling Physical Exam Physical Exam Vital Signs Vital Signs - First Documented 08/20/17 17:04 Temp 98.0 Pulse 66 Resp 20 B/P (MAP) 108/67 (81) Pulse Ox 97 O2 Delivery Room Air Capillary Refill : Less Than 3 Seconds General Appearance: No Apparent Distress, Chronically ill HEENT: PERRL/EOMI, Moist Mucous Membranes Neck: Non Tender, Supple Respiratory: Lungs Clear, No Respiratory Distress Cardiovascular: Regular Rate, Rhythm, No Murmur Gastrointestinal: Normal Bowel Sounds, Non Tender, Soft Genital/Rectal: Other (Chow in place with red transparent urine) Extremity: Normal Capillary Refill, No Calf Tenderness Neurologic/Psychiatric: Alert, Oriented x3, Normal Mood/Affect Skin: Normal Color, Warm/Dry Results Results/Procedures Labs Laboratory Tests 08/20/17 17:30 08/21/17 04:22 Patient resulted labs reviewed. Imaging: Reviewed Imaging Report Assessment/Plan Admission Diagnosis UTi with macroscopic hematuria Admission Status: Inpatient Order (span 2 midnights) Reason for Inpatient Admission: UTI with gross hematuria, needs IV abx, urology consult Diagnosis/Problems Diagnosis/Problems (1) UTI (urinary tract infection) Assessment & Plan: Continue on IV abx Await culture and sensitivity Does not meet sepsis criteria (Leukocytosis <12k) Qualifiers: Urinary tract infection type: acute cystitis Hematuria presence: with hematuria Qualified Codes: N30.01 - Acute cystitis with hematuria (2) Hematuria Assessment & Plan: Continue chow placement Urine appears to be clearing will hold off on CBI Urology consult, appreciate recs Qualifiers: Hematuria type: gross Qualified Codes: R31.0 - Gross hematuria (3) Personal history of stroke with residual effects Status: Acute Assessment & Plan: left sided weakness at base line Will consult PT/OT Hold ASA due to hematuria (4) Prophylactic measure Assessment & Plan: SCDs only HH NS @ 100ml/hr Clinical Quality Measures DVT/VTE Risk/Contraindication: Risk Factor Score Per Nursin RFS Level Per Nursing on Admit: 4+=Very High CHIARA IRVIN MD Aug 21, 2017 10:16
[2017-08-21] MEDS ORDERED: MILK OF MAGNESIA 400 MG/5 ML 30 ML UDC PO PRN (13:45)
[2017-08-21] MEDS ORDERED: NON-FORMULARY MEDICATION 1 EA EA (Polyethylene Glycol 3350 (Miralax) 17 GM) PO PRN (13:45)
[2017-08-21] MEDS ORDERED: ACETAMINOPHEN 325 MG TABLET/CAPLET (TYLENOL) PO PRN (13:45)
[2017-08-21] MEDS ORDERED: LORATADINE (CLARITIN) 10 MG TAB PO PRN (14:00)
[2017-08-21] MEDS ORDERED: POLYETHYLENE GLYCOL 17 GM (MIRALAX) PACK PO PRN (14:00)
[2017-08-21] MEDS: BACLOFEN 10 MG (LIORESAL) TAB PO SCH ×2 (14:15→20:35)
[2017-08-21] MEDS: cefTRIAXone 1 GM/NS 50 ML IVPB IV SCH ×2 (17:28)
[2017-08-21] MEDS: SIMvastatin 40 MG (ZOCOR) TAB PO SCH (20:34)
[2017-08-21] MEDS: DOCUSATE SODIUM 100 MG (COLACE) CAP PO SCH (20:34)
[2017-08-21] MEDS: TAMSULOSIN 0.4 MG (FLOMAX) CAP PO SCH (20:34)
[2017-08-21] MEDS: GABAPENTIN 300 MG (NEURONTIN) CAP PO SCH (20:34)
[2017-08-21] MEDS: LATANOPROST 0.005% (XALATAN) OPHTH SOLN 2.5 ML OP SCH (20:36)
[2017-08-21] MEDS: DORZOLAMIDE/TIMOLOL (COSOPT) 2-0.68% 10 ML BTL OP SCH (20:37)
[2017-08-21] MEDS: FLUoxetine HCL 10 MG (PROzac) CAPSULE/TABLET PO SCH (20:40)
[2017-08-21] MEDS ORDERED: DORZOLAMIDE HCL OP SCH (21:00)
[2017-08-21] MEDS ORDERED: NON-FORMULARY MEDICATION 1 EA EA (Simvastatin 80 MG) PO SCH (21:00)
[2017-08-21] MEDS ORDERED: FLUOXETINE HCL 30 MG PO SCH (21:00)
[2017-08-21] MEDS ORDERED: TIMOLOL MALEATE OP SCH (21:00)
[2017-08-22] VITALS: BP 135/72
[2017-08-22] MEDS: 1/2 NS IV SOLUTION 1,000 ML IV SCH ×3 (02:53→20:47)
[2017-08-22 04:00] VITALS: BP 148/67
[2017-08-22] MEDS: HYDROcodone/APAP 10 MG/325 MG (LORTAB) TAB PO PRN ×3 (04:28→17:41)
[2017-08-22] MEDS: KCL 10 MEQ TAB (MICRO K) PO SCH (06:04)
[2017-08-22 08:03] VITALS: BP 125/60
[2017-08-22] MEDS ORDERED: NON-FORMULARY MEDICATION 1 EA EA (Famotidine (Pepcid) 20 MG) PO SCH (09:00)
[2017-08-22] MEDS ORDERED: NON-FORMULARY MEDICATION 1 EA EA (Potassium Chloride (K-Dur) 10 MEQ) PO SCH (09:00)
[2017-08-22] MEDS: DOCUSATE SODIUM 100 MG (COLACE) CAP PO SCH ×2 (09:25→20:31)
[2017-08-22] MEDS: FAMOTIDINE 20 MG (PEPCID) TABLET PO SCH (09:25)
[2017-08-22] MEDS: FUROSEMIDE 20 MG (LASIX) TAB PO SCH (09:25)
[2017-08-22] MEDS: DORZOLAMIDE/TIMOLOL (COSOPT) 2-0.68% 10 ML BTL OP SCH ×2 (09:25→20:31)
[2017-08-22] MEDS: GABAPENTIN 300 MG (NEURONTIN) CAP PO SCH ×3 (09:25→20:31)
[2017-08-22] MEDS: FLUTICASONE NASAL SPRAY (FLONASE) 16 GM BTL NS SCH (09:26)
[2017-08-22] MEDS ORDERED: ASPI-983 PO (10:31)
[2017-08-22] MEDS ORDERED: FURO20TA4 PO (10:31)
[2017-08-22] MEDS ORDERED: TR1C15 TP (10:31)
[2017-08-22] MEDS ORDERED: DOCU100C37 PO (10:31)
[2017-08-22] MEDS ORDERED: BACL10TA PO (10:31)
[2017-08-22] MEDS ORDERED: FEXO-46 PO (10:31)
[2017-08-22] MEDS ORDERED: TAMS0.4C2 PO (10:31)
[2017-08-22] MEDS ORDERED: POTA10CA43 PO (10:31)
[2017-08-22] MEDS ORDERED: MAGN400O7 PO (10:31)
[2017-08-22] MEDS ORDERED: GABA-488 PO (10:31)
[2017-08-22] MEDS ORDERED: ZINC57OI8 TP (10:31)
--- NOTE | 2017-08-22 11:17 | Physical Therapy Evaluation ---
PT Evaluation-General Medical Diagnosis Admission Date Aug 21, 2017 at 10:54 Medical Diagnosis: hematuria, pleural effusion Onset Date: Aug 20, 2017 Therapy Diagnosis Therapy Diagnosis: impaired mobility, strength, balance, left hemiparesis Height/Weight Height (Feet): 6 Height (Inches): 2.00 Weight (Pounds): 241 Weight (Ounces): 0.0 Precautions Precautions/Isolations: Fall Prevention, Standard Precautions, Pressure Ulcer Weight Bear Status Right Lower Extremity: Right Weight Bearing/Tolerated Left Lower Extremity: Left Weight Bearing/Tolerated Referral Physician: Priya Heaton MD Reason for Referral: Evaluation/Treatment Medical History Pertinent Medical History: CAD, CVA, GERD, Heart Failure, HTN Additional Medical History Past Medical History Surgeries: Joint Replacement, Orthopedic Respiratory: Pneumonia Cardiac: Chronic Edema/Swelling, Coronary Artery Disease, High Cholesterol, Hypertension Neurological: Stroke Reproductive: No Sexually Transmitted Disease: No HIV/AIDS: No Genitourinary: Benign Prostatic Hyperpl, Prostate Problems Gastrointestinal: Gastroesophageal Reflux Musculoskeletal: Chronic Back Pain HEENT: Glaucoma Loss of Vision: Denies Hearing Impairment: Hard of Hearing Psychosocial: Depression Skin/Integumentary: Recent Skin Changes History of Blood Disorders: No Adverse Reaction to Blood Diaz: No Current History Patient came to ER from [facility] with hematuria. Reviewed History: Yes Social History Home: Retirement Prior/Core FIM Prior Level of Function Functional [place] Measure 0=Not Assessed/NA 4=Minimal Assistance 1=Total Assistance 5=Supervision or Setup 2=Maximal Assistance 6=Modified [place] 3=Moderate Assistance 7=Complete [place] Bed Mobility: 2 Transfers (B,C,W/C) (FIM): 2 Patient is non-ambulatory and he states he has a power wheelchair which is not here at the hospital PT Evaluation-Current Subjective Patient in bed pre tx, agrees to PT, has pain in his left leg 6/10. Patient states his left leg is hypersensitive. Pt/Family Goals "to get stronger" Objective Patient Orientation: Person, Place, Situation Attachments: Garcia Catheter, IV ROM/Strength ROM Lower Extremities limited bilaterally Strength Lower Extremities 0/5 gross LLE, RLE hip flexion 3-/5, knee extension 4/5, knee flexion 4/5, dorsiflexion 4-/5 Neuromuscular (Tone, Coordination, Reflexes) NT Sensory Vision: Functional Hearing: Functional Sensation Right Lower Extremit: Intact Sensation Left Lower Extremity: Intact Sensation Lower Extremities Patient has no complaints of numbness or tingling. Transfers Functional [place] Measure 0=Not Assessed/NA 4=Minimal Assistance 1=Total Assistance 5=Supervision or Setup 2=Maximal Assistance 6=Modified [place] 3=Moderate Assistance 7=Complete [place] Transfers (B, C, W/C) (FIM): 2 Scootin Rollin Supine to/from Sit: 2 Sit to/from Stand: 2 bed t/f WC(FIM only if WC use): 2 Patient needs assist with both legs for supine to sit, max assist for sit to stand and stand pivot transfer. Patient was placed at the edge of the bed and it was seen that he had a BM and needed to be cleaned. He was stood and cleaned and then sat back down. He was then transferred to a recliner at bedside and then changed his gown. Balance Sitting Static: Fair Sitting Dynamic: Fair Standing Static: Poor Standing Dynamic: Poor Treatment seated exercises with right leg x15 (AP, LAQ, hip flexion) Assessment/Needs Patient has impaired mobility, strength, endurance, balance, has left hemiparesis Rehab Potential: Poor PT Short Term Goals Short Term Goals Time Frame: Aug 29, 2017 Transfers (B,C,W/C) (FIM): 3 Wheelchair (FIM): 5 (with power chair if he can get it here) Wheelchair Distance: 150' Wheelchair Level of Assist: 5 PT Plan Problem List Problem List: Activity Tolerance, Functional Strength, Safety, Balance, Transfer, Bed Mobility, ROM Treatment/Plan Treatment Plan: Continue Plan of Care Treatment Plan: Bed Mobility, Concurrent Therapy, Education, Functional Activity Melissa, Functional Strength, Safety, Therapeutic Exercise, Transfers Treatment Duration: Aug 29, 2017 Frequency: 6 times per week Estimated Hrs Per Day: .25 hour per day (15-30') Patient and/or Family Agrees t: Yes Safety Risks/Education Patient Education: Transfer Techniques, Correct Positioning, Safety Issues Teaching Recipient: Patient Teaching Methods: Demonstration, Discussion Response to Teaching: Reinforcement Needed Discharge Recommendations Plan Patient will perform bed mobility and transfer training, balance and endurance training, functional strengthening, wheelchair mobility training, and education , to improve functional mobility and independence at home. Therapy D/C Recommendations: Correction (TCU/NH) Time/GCodes Time In: 1050 Time Out: 1110 Total Billed Treatment Time: 20 Total Billed Treatment 1 visit EVH 20' G Codes Necessary: Yes PT/OT Therapy GCodes Therapy Functional Limitation: Physical Therapy Test(s)/Tool used to determine: Level of Assistance Scale Functional Limitation-Current Charge Code: ALFONZO Modifier: SAEID Functional Limitation-Goal Charge Code: NATHEN Modifier: SVITLANA SPARKS PT Aug 22, 2017 11:17
[2017-08-22 12:00] VITALS: BP 110/58
[2017-08-22] MEDS: BACLOFEN 10 MG (LIORESAL) TAB PO SCH ×2 (13:00→20:31)
--- NOTE | 2017-08-22 14:26 | Occupational Therapy Eval ---
OT Evaluation-General/PLF Medical Diagnosis Admission Date Aug 21, 2017 at 10:54 Medical Diagnosis: hematuria, pleural effusion Onset Date: Aug 20, 2017 Therapy Diagnosis Therapy Diagnosis: weakness, decr self care Height/Weight Height (Feet): 6 Height (Inches): 2.00 Weight (Pounds): 241 Weight (Ounces): 0.0 Precautions Precautions/Isolations: Fall Prevention, Standard Precautions, Pressure Ulcer Safety Interventions: Bed Exit Alarm Referral Physician: Priya Heaton MD Referral Reason: Evaluation/Treatment Medical History Pertinent Medical History: Arthritis, CAD, CVA (2004, L sided weakness), GERD, Heart Failure, HTN Additional Medical History BPH. Food drop. Glaucoma. BURNS PAIUTE. Depression Current History Admitted from [facility] with blood in urine. UTI, L pleural effusion Reviewed History: Yes Social History Home: Assisted Living ([facility]) ADL-Prior Level of Function ADL PLOF Comments Pt reported that he has limited mobility due to hemiplegia from CVA and uses a transfer pole for transfers. He is able to pull himself upright, then has help turning to sit on bed, BSC or power chair. He has help dressing both upper and lower body and dresses most of lower body in bed, then stands with pole for help to pull pants up/down. He needs help with clothing management and hygiene for toileting but reported that he can manage feeding and grooming by himself. He also has help with bathing. 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 OT Current Status Subjective Pt seen in room, up in recliner, agreeable to OT. Pain reported /10 but not described or located. Appearance Alert, cooperative Mental Status/Objective Patient Orientation: Person, Place, Situation Attachments: Garcia Catheter, IV Current Glasses/Contacts: Yes (but not here) Hearing Aids: No Dentures/Partials: Yes (but not here) Hand Dominance: Right Upper Extremity ROM R UE grossly WFL. No functional movement L UE Upper Extremity Strength Grossly 4+/5 R UE. No functional movement L UE ADL-Treatment ADL-Current Pt reported that he has been able to feed himself in the hospital but isn't very hungry. His transfers are max assist, per PT evaluation Functional [place] Measure 0=Not Assessed/NA 4=Minimal Assistance 1=Total Assistance 5=Supervision or Setup 2=Maximal Assistance 6=Modified [place] 3=Moderate Assistance 7=Complete IndependenceIRFPAI Quality Coding Scale 6 Independent with activity with or without an assistive device 5 Patient requires set up or clean up by helper. Patient completes activity by themselves 4 Supervision or touching assist (CGA). [place] provide cues , steadying assist 3 The helper provides less than half the effort to complete the activity 2 The helper provides more than half the effort to complete the activity 1 Dependent. The helper does all the effort to complete an activity 7 Patient refused to complete or attempt activity 9 The patient did not perform the activity before the current illness or injury 88 Not attempted due to Medical conditions or safety concerns Education OT Patient Education: Purpose of tx/functional activities, Rehab process Teaching Recipient: Patient Teaching Methods: Discussion Response to Teaching: Verbalize Understanding OT Short Term Goals Short Term Goals Transfers (B,C,W/C) (FIM): 3 OT Maintenance And Repair Worker Goals Maintenance And Repair Worker Goals Time Frame: Aug 29, 2017 Pt will be able to do three R UE exercises independently to help with ADLs Additional Goals: 3-ImproveStrength/Melissa 1=Demonstrate adherence to instructed precautions during ADL tasks. 2=Patient will verbalize/demonstrate understanding of assistive devices/ modifications for ADL. 3=Patient will improve strength/tolerance for activity to enable patient to perform ADL's. OT Education/Plan Problem List/Assessment Assessment: Decreased UE Strength, Impaired Self-Care Skills Pt would benefit from skilled OT to increase R UE strength to help with transfers and ADLs. Discharge Recommendations Plan/Recommendations: Continue POC Target Placement [facility] Treatment Plan/Plan of Care Treatment,Training & Education: Yes Patient would benefit from OT for education, treatment and training to promote independence in ADL's, mobility, safety and/or upper extremity function for ADL' s. Plan of Care: UE Funct Exercise/Act Treatment Duration: Aug 29, 2017 Frequency: 5 times per week Estimated Hrs Per Day: .25 hour per day Agreement: Yes Rehab Potential: Good Time/GCodes Start Time: 13:10 Stop Time: 13:25 Total Time Billed (hr/min): 15 Billed Treatment Time visit, 15 minutes evaluation low intensity PT/OT Therapy GCodes Therapy Functional Limitation: Physical Therapy Test(s)/Tool used to determine: Level of Assistance Scale Functional Limitation-Current Charge Code: MOBCUR Modifier: CK Functional Limitation-Goal Charge Code: MOBGOAL Modifier: JONEL ALARCON OT Aug 22, 2017 14:26
[2017-08-22 15:30] VITALS: BP 118/59
--- NOTE | 2017-08-22 15:43 | Progress Note-Hospitalist ---
Progress Note Progress Notes/Assess & Plan Date Seen 08/22/17 Time Seen by Provider: 15:40 Assessment & Plan The patient is an 86-year-old white male who is quite hard of hearing. He was admitted after he developed juany hematuria at home. He reports he has had no previous history of prostate troubles. No prostate surgery has been done or advised. There has been no history of kidney stones. Physical exam: The patient appears somewhat older than stated age. He is indeed very hard of hearing. Lungs are clear to auscultation. CV is regular without murmur. Extremities show no pedal edema. The bag on the Garcia catheter is clear and no bladder clot is noted. Impression: hematuria now cleared. Plan: Dr. Lopez is apparently out of town for the next week. Therefore remove BRENDAN Trent MD Aug 22, 2017 15:43
[2017-08-22] MEDS: cefTRIAXone 1 GM/NS 50 ML IVPB IV SCH ×2 (17:41)
[2017-08-22 19:10] VITALS: BP 120/63
[2017-08-22] MEDS: FLUoxetine HCL 10 MG (PROzac) CAPSULE/TABLET PO SCH (20:30)
[2017-08-22] MEDS: TAMSULOSIN 0.4 MG (FLOMAX) CAP PO SCH (20:31)
[2017-08-22] MEDS: SIMvastatin 40 MG (ZOCOR) TAB PO SCH (20:31)
[2017-08-22] MEDS: LATANOPROST 0.005% (XALATAN) OPHTH SOLN 2.5 ML OP SCH (20:31)
[2017-08-23] VITALS: BP 116/56
[2017-08-23 04:00] VITALS: BP 117/56
[2017-08-23] MEDS: KCL 10 MEQ TAB (MICRO K) PO SCH (06:10)
[2017-08-23 08:29] VITALS: BP 117/58
[2017-08-23] MEDS: DOCUSATE SODIUM 100 MG (COLACE) CAP PO SCH (09:38)
[2017-08-23] MEDS: FAMOTIDINE 20 MG (PEPCID) TABLET PO SCH (09:38)
[2017-08-23] MEDS: FUROSEMIDE 20 MG (LASIX) TAB PO SCH (09:38)
[2017-08-23] MEDS: GABAPENTIN 300 MG (NEURONTIN) CAP PO SCH (09:38)
[2017-08-23] MEDS: 1/2 NS IV SOLUTION 1,000 ML IV SCH (09:39)
[2017-08-23] MEDS: DORZOLAMIDE/TIMOLOL (COSOPT) 2-0.68% 10 ML BTL OP SCH (09:40)
[2017-08-23] MEDS: FLUTICASONE NASAL SPRAY (FLONASE) 16 GM BTL NS SCH (09:42)
--- NOTE | 2017-08-23 10:03 | Physical Therapy Daily Note ---
PT Daily Note-Current Subjective Pt laying Supine in bed upon arrival. Pt agrees to PT. Pt uses urinal during tx and 450ml marked on daily sheet. Pain Location: No Pain Reported Mental Status Patient Orientation: Person, Place, Situation Pt had Garcia removed previously and using urinal during tx. Transfers Functional [place] Measure 0=Not Assessed/NA 4=Minimal Assistance 1=Total Assistance 5=Supervision or Setup 2=Maximal Assistance 6=Modified [place] 3=Moderate Assistance 7=Complete IndependenceIRFPAI Quality Coding Scale 6 Independent with activity with or without an assistive device 5 Patient requires set up or clean up by helper. Patient completes activity by themselves 4 Supervision or touching assist (CGA). [place] provide cues , steadying assist 3 The helper provides less than half the effort to complete the activity 2 The helper provides more than half the effort to complete the activity 1 Dependent. The helper does all the effort to complete an activity 7 Patient refused to complete or attempt activity 9 The patient did not perform the activity before the current illness or injury 88 Not attempted due to Medical conditions or safety concerns Weight Bearing Right Lower Extremity: Right Weight Bearing/Tolerated Left Lower Extremity: Left Weight Bearing/Tolerated Exercises Supine Ex: Ankle pumps, Quad Set, Straight leg raise, Hip abd/add Supine Reps: 15 Treatments Pt completes using Urinal before starting Ex. Pt completes Supine Ex in bed with several rest breaks. 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 RADIO JOURNALIST notified Nurse that pt has soiled the bed at some point previous to tx. Pt resting in bed after tx with all needs met. OT arrives for tx. Assessment Current Status: Fair Progress Pt fatigues easy and is weak on L side. PT Short Term Goals Short Term Goals Time Frame: Aug 29, 2017 Transfers (B,C,W/C) (FIM): 3 Wheelchair (FIM): 5 (with power chair if he can get it here) Wheelchair Distance: 150' Wheelchair Level of Assist: 5 PT Plan Problem List Problem List: Activity Tolerance, Functional Strength, Safety, Balance, Transfer, Bed Mobility Treatment/Plan Treatment Plan: Continue Plan of Care Treatment Plan: Bed Mobility, Concurrent Therapy, Education, Functional Activity Melissa, Functional Strength, Safety, Therapeutic Exercise, Transfers Treatment Duration: Aug 29, 2017 Frequency: 6 times per week Estimated Hrs Per Day: .25 hour per day (15-30') Patient and/or Family Agrees t: Yes Safety Risks/Education Patient Education: Transfer Techniques, Correct Positioning, Safety Issues Teaching Recipient: Patient Teaching Methods: Discussion Response to Teaching: Verbalize Understanding Time/GCodes Time In: 835 Time Out: 859 Total Billed Treatment Time: 24 Total Billed Treatment 1, EX (15m) & FA (9m) G Codes Necessary: No PT/OT Therapy GCodes Therapy Functional Limitation: Physical Therapy Test(s)/Tool used to determine: Level of Assistance Scale Functional Limitation-Current Charge Code: MOBCUR Modifier: CK Functional Limitation-Goal Charge Code: MOBGOAL Modifier: MARK HORNER PTA Aug 23, 2017 10:03
--- NOTE | 2017-08-23 11:23 | Progress Note-Hospitalist ---
Progress Note Progress Notes/Assess & Plan Date Seen 08/23/17 Time Seen by Provider: 11:22 Assessment & Plan The patient's Garcia was removed late yesterday after he demonstrated the clear urine. He did not require replacement and has been able to urinate through the night. Dr. Lopez is out of town until next week, therefore an outpatient appointment will be scheduled for him next week. Physical exam: Lungs are clear to auscultation. CV is regular without murmur. The abdomen is obese but soft. Extremities show no pedal edema. Impression: Hematuria/urinary retention. Plan: As detailed in the discharge sequence. BRENDAN RUSH MD Aug 23, 2017 11:23
--- NOTE | 2017-08-23 11:24 | Occupational Ther Daily Note ---
OT Current Status-Daily Note Subjective No pain reported. Appearance Pt. has just finished with PT. PT notes that pt. has had urinary accident in bed. Mental Status/Objective Patient Orientation: Person, Place Functional [place] Measure 0=Not Assessed/NA 4=Minimal Assistance 1=Total Assistance 5=Supervision or Setup 2=Maximal Assistance 6=Modified [place] 3=Moderate Assistance 7=Complete [place] Attachments: IV ADL-Treatment Toileting (FIM): 1 (Pt. incontinent of urine in bed, and then of loose stool once he was mid-transfer to chair.) Transfers (B, C, W/C) (FIM): 2 (Pt. has system at [facility] that he uses, which involves holding onto pole to stand. At this time, pt. is able to transfer supine-sit with max assist, and stand with max assist and pivot to chair.) Other Treatment Pt. agreed to transfer to chair. During transfer, it was noted that pt. was incontinent of stool. Supplies were gathered, and pt. stood again with max assist, and stood approximately 1-2 minutes while tech cleansed rear lidia area and changed pads in chair. OT changed hospital gown and pt. was positioned to comfort level. Nursing aware that pt. up in chair, and informed on how pt. transferred. All needs were met in room. Education OT Patient Education: Correct positioning, Modified ADL techniques, Progress toward Goal/Update tx plan, Purpose of tx/functional activities, Reviewed precautions, Rehab process, Transfer techniques Teaching Recipient: Patient Teaching Methods: Demonstration, Discussion Response to Teaching: Verbalize Understanding, Return Demonstration OT Short Term Goals Short Term Goals Transfers (B,C,W/C) (FIM): 3 1=Demonstrate adherence to instructed precautions during ADL tasks. 2=Patient will verbalize/demonstrate understanding of assistive devices/ modifications for ADL. 3=Patient will improve strength/tolerance for activity to enable patient to perform ADL's. OT Group Home Goals Clinical Appeals Reviewer Goals Time Frame: Aug 29, 2017 Pt will be able to do three R UE exercises independently to help with ADLs Additional Goals: 3-ImproveStrength/Melissa 1=Demonstrate adherence to instructed precautions during ADL tasks. 2=Patient will verbalize/demonstrate understanding of assistive devices/ modifications for ADL. 3=Patient will improve strength/tolerance for activity to enable patient to perform ADL's. OT Education/Plan Problem List/Assessment Assessment: Decreased Activ Tolerance, Decreased UE Strength, Dependent Transfers, Impaired Bed Mobility, Impaired Funct Balance, Impaired I ADL's, Impaired Self-Care Skills, Restricted Funct UE ROM Pt would benefit from skilled OT to increase R UE strength to help with transfers and ADLs. Discharge Recommendations Plan/Recommendations: Continue POC Therapy D/C Recommendations: Assisted Living, Scheduled Assistance Target Placement Pt. lives at [facility], and has assistance with all ADLs. Pt. would like to return to that level of care. Treatment Plan/Plan of Care Treatment,Training & Education: Yes Patient would benefit from OT for education, treatment and training to promote independence in ADL's, mobility, safety and/or upper extremity function for ADL' s. Plan of Care: ADL Retraining, Functional Mobility, UE Funct Exercise/Act Treatment Duration: Aug 29, 2017 Frequency: 5 times per week Estimated Hrs Per Day: .25 hour per day Agreement: Yes Rehab Potential: Good Time/GCodes Start Time: 08:55 Stop Time: 09:15 Total Time Billed (hr/min): 20 Billed Treatment Time 1, FA PT/OT Therapy GCodes Therapy Functional Limitation: Physical Therapy Test(s)/Tool used to determine: Level of Assistance Scale Functional Limitation-Current Charge Code: MOBCUR Modifier: CK Functional Limitation-Goal Charge Code: MOBGOAL Modifier: BRIANNA ARENAS OT Aug 23, 2017 11:24
--- NOTE | 2017-08-23 11:32 | Discharge Instructions ---
Discharge Instructions Patient Instructions Patient Instructions: Observe all urine for blood. Drink plenty of liquids An appointment has been made for you with Dr. Lopez for an outpatient visit next week. [facility] to [facility]: Return if you become unable to empty her bladder Activity & Diet Discharge Diet: No Restrictions Activity as Tolerated: Yes BRENDAN RUSH MD Aug 23, 2017 11:32
[2017-08-23] MEDS: HYDROcodone/APAP 10 MG/325 MG (LORTAB) TAB PO PRN (11:54)
[2017-08-23] MEDS ORDERED: CEFD300C3 PO (12:28)
[2017-08-23 12:50] VITALS: BP 117/58
== END 2017-08-23 12:55 | DRG 690 ==
LOC: ER 17:02 → 4TH 18:27 → UNDOADMOB 18:27 → 4TH 19:15 → OBSVTOIN 08-21 10:54 → INTOOBSV 08-21 10:54 → UNDODISIN 08-23 12:55
PROVIDERS: ADMIT Family Medicine; ATTEND Internal Medicine
DX: N30.01 Acute cystitis with hematuria (principal); I69.354 Hemiplegia and hemiparesis following cerebral infarction affecting left non-dominant side; J90 Pleural effusion, not elsewhere classified; R33.9 Retention of urine, unspecified; I11.9 Hypertensive heart disease without heart failure; I50.9 Heart failure, unspecified; I25.10 Atherosclerotic heart disease of native coronary artery without angina pectoris; E78.00 Pure hypercholesterolemia, unspecified; Z66 Do not resuscitate; H91.90 Unspecified hearing loss, unspecified ear; J30.2 Other seasonal allergic rhinitis; N40.0 Benign prostatic hyperplasia without lower urinary tract symptoms; K21.9 Gastro-esophageal reflux disease without esophagitis; M19.91 Primary osteoarthritis, unspecified site; M21.379 Foot drop, unspecified foot; F32.9 Major depressive disorder, single episode, unspecified; H40.9 Unspecified glaucoma; M54.9 Dorsalgia, unspecified; Z79.01 Long term (current) use of anticoagulants; Z96.642 Presence of left artificial hip joint
CPT/HCPCS: 36415; 51702; 74018; 74176; 80053; 81000; 85025; 85610; 85730; 87077; 87088; 87186; 96365; G0378

== ENCOUNTER 2017-11-27 10:36 | Emergency (ER) | payer MEDICARE ==
[~2017-11-27] VITALS: Ht 177.8 cm; Wt 99.8 kg
[~2017-11-27 10:36] MED LIST changes: +ASPI-983 PO; +BACL10TA PO; +CEFD300C3 PO; +DIPH25CA79 PO; +DOCU100C37 PO; +DORZ10DR18 OU; +FAMO-119 PO; +FEXO-46 PO; +FLUO10CA29 PO; +FLUT16SP22 NS; +FURO20TA4 PO; +GABA-488 PO; +HYDR-3820 PO; +LATA2.5D5 OU; +MAGN400O7 PO; +POLY17PO6 PO; +POTA10CA43 PO; +SIMV80TA2 PO; +TAMS0.4C2 PO; +TIMO5DRO31 OU; +TR1C15 TP; +ZINC57OI8 TP
--- OUTSIDE RECORDS SUMMARY | 2017-11-27 10:42 | XMS REPORT | Continuity of Care Document ---
Author Author [facility] Organization [facility] Address Unknown Phone Unavailable Allergies Active Description Code Type Severity Reaction Onset Reported/Identified Relationship to Patient Clinical Status Yes No Known Drug Allergies [id number] Drug Allergy Unknown N/A 08/15/2014 Medications There [...] MITCHELL MD Ot 414.01 CORONARY ATHEROSCLEROSIS OF [place] CORON 08/20/2014 CHANDLER MITCHELL MD Ot 428.0 [...] DO Ot I25.10 ATHSCL HEART DISEASE OF [place] CORONARY 01/13/2016 SHAKA MCGEE DO Ot I44.0 [...] SHAKA MCGEE DO Ot Y92.[address] 01/13/2016 SHAKA MCGEE DO Ot Z66 [...] APRN Ot I25.10 ATHSCL HEART DISEASE OF [place] CORONARY 05/06/2017 AFSHAN LEI APRN Ot K21.9 [...] IMMUNIZATION 05/06/2017 AFSHAN LEI APRN Ot Z79.52 INTERMEDIATE (CURRENT) USE OF SYSTEMIC STER 05/06/2017 AFSHAN [...] APRN Ot I25.10 ATHSCL HEART DISEASE OF [place] CORONARY 05/09/2017 AFSHAN LEI APRN Ot K21.9 [...] IMMUNIZATION 05/09/2017 AFSHAN LEI APRN Ot Z79.52 INTERMEDIATE (CURRENT) USE OF SYSTEMIC STER 05/09/2017 AFSHAN LEI APRN Ot Z86.73 PRSNL HX OF TIA (TIA), AND CEREB INFRC W 05/09/2017 LEI, PETER J [facility] HE[facility] COACH Ot Z87.01 PERSONAL HISTORY OF PNEUMONIA (RECURRENT 08/20/2017 YAN BOB [facility] HE[facility] COACH Ot M25.562 PAIN IN LEFT KNEE 08/23/2017 CHANDLER MITCHELL MD Ot E78.00 PURE HYPERCHOLESTEROLEMIA, UNSPECIFIED 08/23/2017 CHANDLER MITCHELL MD Ot F32.9 MAJOR DEPRESSIVE DISORDER, SINGLE EPISOD 08/23/2017 CHANDLER MITCHELL MD Ot H40.9 UNSPECIFIED GLAUCOMA 08/23/2017 CHANDLER MITCHELL MD Ot H91.90 UNSPECIFIED HEARING LOSS, UNSPECIFIED EA 08/23/2017 CHANDLER MITCHELL MD Ot I11.9 HYPERTENSIVE HEART DISEASE WITHOUT HEART 08/23/2017 CHANDLER MITCHELL MD Ot I25.10 ATHSCL HEART DISEASE OF [place] CORONARY 08/23/2017 CHANDLER MITCHELL MD Ot I50.9 HEART FAILURE, UNSPECIFIED 08/23/2017 CHANDLER MITCHELL MD Ot I69.354 HEMIPLGA FOLLOWING CEREBRAL INFRC AFFECT 08/23/2017 CHANDLER MITCHELL MD Ot J30.2 OTHER SEASONAL ALLERGIC RHINITIS 08/23/2017 CHANDLER MITCHELL MD Ot J90 PLEURAL EFFUSION, NOT ELSEWHERE CLASSIFI 08/23/2017 CHANDLER MITCHELL MD Ot K21.9 GASTRO-ESOPHAGEAL REFLUX DISEASE WITHOUT 08/23/2017 CHANDLER MITCHELL MD Ot M19.91 PRIMARY OSTEOARTHRITIS, UNSPECIFIED SITE 08/23/2017 CHANDLER MITCHELL MD Ot M21.379 FOOT DROP, UNSPECIFIED FOOT 08/23/2017 CHANDLER MITCHELL MD Ot M54.9 DORSALGIA, UNSPECIFIED 08/23/2017 CHANDLER MITCHELL MD Ot N30.01 ACUTE CYSTITIS WITH HEMATURIA 08/23/2017 CHANDLER MITCHELL MD Ot N40.0 BENIGN PROSTATIC HYPERPLASIA WITHOUT LOW 08/23/2017 CHANDLER MITCHELL MD Ot R33.9 RETENTION OF URINE, UNSPECIFIED 08/23/2017 CHANDLER MITCHELL MD Ot Z66 DO NOT RESUSCITATE 08/23/2017 CHANDLER MITCHELL MD Ot Z79.01 INTERMEDIATE (CURRENT) USE OF ANTICOAGULANT 08/23/2017 CHANDLER MITCHELL MD Ot Z96.642 PRESENCE OF LEFT ARTIFICIAL HIP JOINT 08/23/2017 CHANDLER MITCHELL MD Ot E78.00 PURE HYPERCHOLESTEROLEMIA, UNSPECIFIED 08/23/2017 CHANDLER MITCHELL MD Ot F32.9 MAJOR DEPRESSIVE DISORDER, SINGLE EPISOD 08/23/2017 PAULA MD, CHANDLER D Ot H40.9 UNSPECIFIED GLAUCOMA 08/23/2017 CHANDLER MITCHELL MD Ot I11.9 HYPERTENSIVE HEART DISEASE WITHOUT HEART 08/23/2017 CHANDLER MITCHELL MD Ot I25.10 ATHSCL HEART DISEASE OF [place] CORONARY 08/23/2017 CHANDLER MITCHELL MD Ot I50.9 HEART FAILURE, UNSPECIFIED 08/23/2017 CHANDLER MITCHELL MD Ot I69.354 HEMIPLGA FOLLOWING CEREBRAL INFRC AFFECT 08/23/2017 CHANDLER MITCHELL MD Ot J30.2 OTHER SEASONAL ALLERGIC RHINITIS 08/23/2017 CHANDLER MITCHELL MD Ot J90 PLEURAL EFFUSION, NOT ELSEWHERE CLASSIFI 08/23/2017 CHANDLER MITCHELL MD Ot K21.9 GASTRO-ESOPHAGEAL REFLUX DISEASE WITHOUT 08/23/2017 CHANDLER MITCHELL MD Ot M19.91 PRIMARY OSTEOARTHRITIS, UNSPECIFIED SITE 08/23/2017 CHANDLER MITCHELL MD Ot M21.379 FOOT DROP, UNSPECIFIED FOOT 08/23/2017 CHANDLER MITCHELL MD Ot M54.9 DORSALGIA, UNSPECIFIED 08/23/2017 CHANDLER MITCHELL MD Ot N30.01 ACUTE CYSTITIS WITH HEMATURIA 08/23/2017 CHANDLER MITCHELL MD Ot N40.0 BENIGN PROSTATIC HYPERPLASIA WITHOUT LOW 08/23/2017 CHANDLER MITCHELL MD Ot Z66 DO NOT RESUSCITATE 08/23/2017 CHANDLER MITCHELL MD Ot Z79.01 INTERMEDIATE (CURRENT) USE OF ANTICOAGULANT 08/23/2017 CHANDLER MITCHELL MD Ot Z96.642 PRESENCE OF LEFT ARTIFICIAL HIP JOINT 08/29/2017 CHANDLER MITCHELL MD Ot E78.00 PURE HYPERCHOLESTEROLEMIA, UNSPECIFIED 08/29/2017 CHANDLER MITCHELL MD Ot F32.9 MAJOR DEPRESSIVE DISORDER, SINGLE EPISOD 08/29/2017 CHANDLER MITCHELL MD Ot H40.9 UNSPECIFIED GLAUCOMA 08/29/2017 CHANDLER MITCHELL MD Ot H91.90 UNSPECIFIED HEARING LOSS, UNSPECIFIED EA 08/29/2017 CHANDLER MITCHELL MD Ot I11.9 HYPERTENSIVE HEART DISEASE WITHOUT HEART 08/29/2017 CHANDLER MITCHELL MD Ot I25.10 ATHSCL HEART DISEASE OF [place] CORONARY 08/29/2017 CHANDLER MITCHELL MD Ot I50.9 HEART FAILURE, UNSPECIFIED 08/29/2017 CHANDLER MITCHELL MD Ot I69.354 HEMIPLGA FOLLOWING CEREBRAL INFRC AFFECT 08/29/2017 CHANDLER MITCHELL MD Ot J30.2 OTHER SEASONAL ALLERGIC RHINITIS 08/29/2017 CHANDLER MITCHELL MD Ot J90 PLEURAL EFFUSION, NOT ELSEWHERE CLASSIFI 08/29/2017 CHANDLER MITCHELL MD Ot K21.9 GASTRO-ESOPHAGEAL REFLUX DISEASE WITHOUT 08/29/2017 CHANDLER MITCHELL MD Ot M19.91 PRIMARY OSTEOARTHRITIS, UNSPECIFIED SITE 08/29/2017 CHANDLER MITCHELL MD Ot M21.379 FOOT DROP, UNSPECIFIED FOOT 08/29/2017 CHANDLER MITCHELL MD Ot M54.9 DORSALGIA, UNSPECIFIED 08/29/2017 CHANDLER MITCHELL MD Ot N30.01 ACUTE CYSTITIS WITH HEMATURIA 08/29/2017 CHANDLER MITCHELL MD Ot N40.0 BENIGN PROSTATIC HYPERPLASIA WITHOUT LOW 08/29/2017 CHANDLER MITCHELL MD Ot R33.9 RETENTION OF URINE, UNSPECIFIED 08/29/2017 CHANDLER MITCHELL MD Ot Z66 DO NOT RESUSCITATE 08/29/2017 CHANDLER MITCHELL MD Ot Z79.01 INTERMEDIATE (CURRENT) USE OF ANTICOAGULANT 08/29/2017 CHANDLER MITCHELL MD Ot Z96.642 PRESENCE OF LEFT ARTIFICIAL HIP JOINT 08/29/2017 CHANDLER MITCHELL MD Ot E78.00 PURE HYPERCHOLESTEROLEMIA, UNSPECIFIED 08/29/2017 CHANDLER MITCHELL MD Ot F32.9 MAJOR DEPRESSIVE DISORDER, SINGLE EPISOD 08/29/2017 CHANDLER MITCHELL MD Ot H40.9 UNSPECIFIED GLAUCOMA 08/29/2017 CHANDLER MITCHELL MD Ot H91.90 UNSPECIFIED HEARING LOSS, UNSPECIFIED EA 08/29/2017 CHANDLER MITCHELL MD Ot I11.9 HYPERTENSIVE HEART DISEASE WITHOUT HEART 08/29/2017 CHANDLER MITCHELL MD Ot I25.10 ATHSCL HEART DISEASE OF [place] CORONARY 08/29/2017 CHANDLER MITCHELL MD Ot I50.9 HEART FAILURE, UNSPECIFIED 08/29/2017 CHANDLER MITCHELL MD Ot I69.354 HEMIPLGA FOLLOWING CEREBRAL INFRC AFFECT 08/29/2017 CHANDLER MICTHELL MD Ot J30.2 OTHER SEASONAL ALLERGIC RHINITIS 08/29/2017 CHANDLER MITCHELL MD Ot J90 PLEURAL EFFUSION, NOT ELSEWHERE CLASSIFI 08/29/2017 CHANDLER MITCHELL MD Ot K21.9 GASTRO-ESOPHAGEAL REFLUX DISEASE WITHOUT 08/29/2017 CHANDLER MITCHELL MD Ot M19.91 PRIMARY OSTEOARTHRITIS, UNSPECIFIED SITE 08/29/2017 CHANDLER MITCHELL MD Ot M21.379 FOOT DROP, UNSPECIFIED FOOT 08/29/2017 CHANDLER MITCHELL MD Ot M54.9 DORSALGIA, UNSPECIFIED 08/29/2017 CHANDLER MITCHELL MD Ot N30.01 ACUTE CYSTITIS WITH HEMATURIA 08/29/2017 CHANDLER MITCHELL MD Ot N40.0 BENIGN PROSTATIC HYPERPLASIA WITHOUT LOW 08/29/2017 CHANDLER MITCHELL MD Ot R33.9 RETENTION OF URINE, UNSPECIFIED 08/29/2017 CHANDLER MITCHELL MD Ot Z66 DO NOT RESUSCITATE 08/29/2017 CHANDLER MITCHELL MD Ot Z79.01 INTERMEDIATE (CURRENT) USE OF ANTICOAGULANT 08/29/2017 CHANDLER MITCHELL MD Ot Z96.642 PRESENCE OF LEFT ARTIFICIAL HIP JOINT 08/29/2017 CHANDLER MITCHELL MD Ot E78.00 PURE HYPERCHOLESTEROLEMIA, UNSPECIFIED 08/29/2017 CHANDLER MITCHELL MD Ot F32.9 MAJOR DEPRESSIVE DISORDER, SINGLE EPISOD 08/29/2017 CHANDLER MITCHELL MD Ot H40.9 UNSPECIFIED GLAUCOMA 08/29/2017 CHANDLER MITCHELL MD Ot H91.90 UNSPECIFIED HEARING LOSS, UNSPECIFIED EA 08/29/2017 CHANDLER MITCHELL MD Ot I11.9 HYPERTENSIVE HEART DISEASE WITHOUT HEART 08/29/2017 CHANDLER MITCHELL MD Ot I25.10 ATHSCL HEART DISEASE OF [place] CORONARY 08/29/2017 CHANDLER MITCHELL MD Ot I50.9 HEART FAILURE, UNSPECIFIED 08/29/2017 CHANDLER MITCHELL MD Ot I69.354 HEMIPLGA FOLLOWING CEREBRAL INFRC AFFECT 08/29/2017 CHANDLER MITCHELL MD Ot J30.2 OTHER SEASONAL ALLERGIC RHINITIS 08/29/2017 CHANDLER MITCHELL MD Ot J90 PLEURAL EFFUSION, NOT ELSEWHERE CLASSIFI 08/29/2017 CHANDLER MITCHELL MD Ot K21.9 GASTRO-ESOPHAGEAL REFLUX DISEASE WITHOUT 08/29/2017 CHANDLER MITCHELL MD Ot M19.91 PRIMARY OSTEOARTHRITIS, UNSPECIFIED SITE 08/29/2017 CHANDLER MITCHELL MD Ot M21.379 FOOT DROP, UNSPECIFIED FOOT 08/29/2017 CHANDLER MITCHELL MD Ot M54.9 DORSALGIA, UNSPECIFIED 08/29/2017 CHANDLER MITCHELL MD Ot N30.01 ACUTE CYSTITIS WITH HEMATURIA 08/29/2017 CHANDLRE MITCHELL MD Ot N40.0 BENIGN PROSTATIC HYPERPLASIA WITHOUT LOW 08/29/2017 CHANDLER MITCHELL MD Ot R33.9 RETENTION OF URINE, UNSPECIFIED 08/29/2017 CHANDLER MITCHELL MD Ot Z66 DO NOT RESUSCITATE 08/29/2017 CHANDLER MITCHELL MD Ot Z79.01 NURSE MIDWIFE/CLINICAL INSTRUCTOR (CURRENT) USE OF ANTICOAGULANT 08/29/2017 CHANDLER MITCHELL MD Ot Z96.642 PRESENCE OF LEFT ARTIFICIAL HIP JOINT Procedures Code Description Performed By Performed On [id number] REPLACE L HIP JT, FEMORAL W METAL, [...] 01/10/16 11:35 Blood monocytes/100 leukocytes 7 % NR Manual blood segmented neutrophils/100 leukocytes 75 % NRG Blood band neutrophils/100 leukocytes 6 % NR Manual blood lymphocytes/100 leukocytes 12 % NR Manual eosinophils/100 leukocytes in nose 0 % NR Manual blood basophils/100 leukocytes 0 % NR Blood erythrocyte morphology finding identification [facility] Comprehensive metabolic panel - 01/10/16 11:35 Serum [...] ABO+Rh group OP NRG Transfusion band number [id number] NRG Blood group antibody screen NEGATIVE NRG [...] urinalysis with reflex to culture YES NRG Bacterial urine culture - 08/20/17 17:53 Bacterial urine culture [id number] NRG COLONY COUNT >100,000/ML NRG FTX;REPORTABLE RML REPORTED SENSITIVITY 08/23/17 12:05 NRG RML Sensitivity Panel - 08/20/17 17:53 Gentamicin susceptibility test by minimum inhibitory concentration < = NRG Trimethoprim/sulfamethoxazole susceptibility test by minimum inhibitoryconcentration < NRG Levofloxacin susceptibility test by minimum inhibitory concentration > NRG Ampicillin susceptibility test by minimum inhibitory concentration < = NRG Cefazolin susceptibility test by minimum inhibitory concentration 4 NRG Ceftriaxone susceptibility test by minimum inhibitory concentration <= NRG Ciprofloxacin susceptibility test by minimum inhibitory concentration > NRG Nitrofurantoin susceptibility test by minimum inhibitory concentration R NRG Amoxicillin and clavulanate potassium susc RENALDO <= NRG Complete blood count (CBC) with automated white blood cell (WBC) differential - 08/21/17 04:22 Blood leukocytes automated count (number/volume) 11.9 10*3/uL 4.3-11.0 Blood erythrocytes automated count (number/volume) 4.59 10*6/uL 4.35-5.85 Venous blood hemoglobin measurement (mass/volume) 12.6 g/dL 13.3-17.7 Blood hematocrit (volume fraction) 39 % 40-54 Automated erythrocyte mean corpuscular volume 84 [foz_us] 80-99 Automated erythrocyte mean corpuscular hemoglobin (mass per erythrocyte) 27 pg 25-34 Automated erythrocyte mean corpuscular hemoglobin concentration measurement ( mass/volume) 33 g/dL 32-36 Automated erythrocyte distribution width ratio 14.0 % 10.0-14.5 Automated blood platelet count (count/volume) 247 10*3/uL 130-400 Automated blood platelet mean volume measurement 10.3 [foz_us] 7.4-10.4 Automated blood neutrophils/100 leukocytes 81 % 42-75 Automated blood lymphocytes/100 leukocytes 9 % 12-44 Blood monocytes/100 leukocytes 7 % 0-12 Automated blood eosinophils/100 leukocytes 3 % 0-10 Automated blood basophils/100 leukocytes 0 % 0-10 Blood neutrophils automated count (number/volume) 9.6 10*3 1.8-7.8 Blood lymphocytes automated count (number/volume) 1.1 10*3 1.0-4.0 Blood monocytes automated count (number/volume) 0.8 10*3 0.0-1.0 Automated eosinophil count 0.4 10*3/uL 0.0-0.3 Automated blood basophil count (count/volume) 0.0 10*3/uL 0.0-0.1 Comprehensive metabolic panel - 08/21/17 04:22 Serum or plasma sodium measurement (moles/volume) 136 mmol/L 135-145 Serum or plasma potassium measurement (moles/volume) 4.1 mmol/L 3.6-5.0 Serum or plasma chloride measurement (moles/volume) 107 mmol/L 98-107 Carbon dioxide 19 mmol/L 21-32 Serum or plasma anion gap determination (moles/volume) 10 mmol/L 5-14 Serum or plasma urea nitrogen measurement (mass/volume) 13 mg/dL 7-18 Serum or plasma creatinine measurement (mass/volume) 0.74 mg/dL 0.60-1.30 Serum or plasma urea nitrogen/creatinine mass ratio 18 NRG Serum or plasma creatinine measurement with calculation of estimated glomerular filtration rate > NRG Serum or plasma glucose measurement (mass/volume) 131 mg/dL 70-105 Serum or plasma calcium measurement (mass/volume) 8.6 mg/dL 8.5-10.1 Serum or plasma total bilirubin measurement (mass/volume) 0.8 mg/dL 0.1-1.0 Serum or plasma alkaline phosphatase measurement (enzymatic activity/volume) 97 U/L 40-136 Serum or plasma aspartate aminotransferase measurement (enzymatic activity/ volume) 11 U/L 5-34 Serum or plasma alanine aminotransferase measurement (enzymatic activity/volume ) < U/L 0-55 Serum or plasma protein measurement (mass/volume) 6.8 g/dL 6.4-8.2 Serum or plasma albumin measurement (mass/volume) 3.4 g/dL 3.2-4.5 Encounters ACCT No. Visit Date/Time Discharge Status Pt. Type Provider Facility Loc./Unit Complaint [id number] 08/21/2017 10:54:00 08/23/2017 12:55:00 DIS Inpatient CHANDLER MITCHELL MD [facility] 4TH UTI WITH GROSS HEMATURIA , L PLEURAL EFFUSION/ [id number] 05/06/2017 19:39:00 05/06/2017 20:50:00 DIS Emergency AFSHAN LEI [facility] ER L FINGER LAC [id number] 02/23/2016 11:28:00 02/23/2016 23:59:59 CLS Outpatient YAN BOB APRN [facility] RAD LT SIDED KNEE PAIN [id number] 01/10/2016 12:15:00 01/13/2016 14:33:00 DIS Inpatient SHAKA MCGEE DO [facility] 4TH L HIP FX [id number] 08/15/2014 15:04:00 08/20/2014 13:13:00 DIS Inpatient CHANDLER MITCHELL MD [facility] 4TH PNEUMONIA
[2017-11-27] MEDS ORDERED: NS IV 1000 ML 1,000 ML IV SCH (10:49)
--- NOTE | 2017-11-27 10:53 | ED Neurological Problem ---
General Stated Complaint: LETHARGIC Source: patient, EMS, care home records Exam Limitations: clinical condition History of Present Illness Date Seen by Provider: Nov 27, 2017 Time Seen by Provider: 10:39 Initial Comments Patient presents to ER by EMS from [facility] with chief complaint that he 's been acting goofy according to the patient the past couple days. EMS states that nursing told and his been acting more lethargic the past 2 or 3 days and they're afraid that he might be having a stroke. 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 Patient is not on blood thinners. Patient says he lives at a care home in [place] as were his from. He thinks is the hospital in [place] right now. He is having some pain in his left knee after a fall yesterday. EMS reports they were told he did not strike his head and did not get evaluated at the ER yesterday. Patient denies any dysuria, shortness of breath but he does have a nonproductive cough. Other than the knee is not having any pain anywhere else. The patient's granddaughter relates that the patient is at his baseline since his stroke in September in terms of speech and disability. She was not notified that the patient had a fall. Patient says that he did fall out of bed while transferring out with staff and the mattress came off the bed and he landed on his left knee with his leg pinned behind him. Allergies and Home Medications Allergies Coded Allergies: No Known Drug Allergies (Unverified , 08/15/14) Home Medications Acetaminophen 325 Mg Tablet, 650 MG PO Q4H PRN for PAIN-MILD OR TEMPATURE, ( Reported) Aspirin 81 Mg Tablet.dr, 81 MG PO DAILY, (Reported) Baclofen 10 Mg Tablet, 10 MG PO 0800,1999, (Reported) Baclofen 10 Mg Tablet, 5 MG PO 1400,1999, (Reported) TAKES 1/2 (10MG) TABLET Cefdinir 300 Mg Capsule, 300 MG PO TWICE A DAY Prescribed by: BRENDAN RUSH on 08/23/17 1228 Diphenhydramine HCl 25 Mg Capsule, 25 MG PO Q6H PRN for HIVES/ITCH/RASH, ( Reported) Docusate Sodium 100 Mg Capsule, 100 MG PO BID, (Reported) Dorzolamide HCl 10 Ml Drops, 1 DROP OU BID, (Reported) Famotidine 20 Mg Tablet, 20 MG PO DAILY, (Reported) Fexofenadine HCl 180 Mg Tablet, 180 MG PO DAILY, (Reported) Fluoxetine HCl 10 Mg Capsule, 30 MG PO HS, (Reported) TAKES 3 (10MG) CAPSULES Fluticasone Propionate 16 Gm Carleton.susp, 2 SPRAYS NS DAILY, (Reported) Furosemide 20 Mg Tablet, 20 MG PO DAILY, (Reported) Gabapentin 300 Mg Capsule, 300 MG PO TID, (Reported) Hydrocodone/Acetaminophen 1 Each Tablet, 1 TAB PO Q4H PRN for PAIN-MODERATE, ( Reported) Latanoprost 2.5 Ml Drops, 1 DROP OU HS, (Reported) Magnesium Hydroxide 400 Mg/5 Ml Oral.susp, 45 ML PO Q12H PRN for CONSTIPATION- 7TH LINE, (Reported) Polyethylene Glycol 3350 17 Gm Powd.pack, 17 GM PO DAILY PRN for CONSTIPATION- 1ST LINE, (Reported) Potassium Chloride 10 Meq Capsule.er, 10 MEQ PO DAILY, (Reported) Simvastatin 80 Mg Tablet, 80 MG PO HS, (Reported) Tamsulosin HCl 0.4 Mg Cap.er.24h, 0.4 MG PO HS, (Reported) Timolol Maleate 5 Ml Drop.daily, 1 DROP OU BID, (Reported) 0.5% Triamcinolone Acet 15 Gm Cr, TP BID PRN for RASH, (Reported) Zinc Oxide 57 Gm Oint...g., TP BID PRN for REDNESS, (Reported) Patient Home Medication List Home Medication List Reviewed: Yes Review of Systems Review of Systems Constitutional: No chills, No diaphoresis Eyes: Denies Blindness, Denies Blurred Vision, Denies Pain, Denies Photophobia Ears, Nose, Mouth, Throat: denies ear pain, denies ear discharge Respiratory: cough; No phlegm, No short of breath, No wheezing Cardiovascular: No chest pain, No palpitations Gastrointestinal: No abdominal pain, No constipation, No nausea Genitourinary: No discharge, No dysuria Musculoskeletal: No back pain; joint pain (left knee) Past Uocrxiv-Yesinn-Fsqmlz Hx Patient Social History Alcohol Use: Denies Use Recreational Drug Use: No Smoking Status: Never a Smoker Recent Foreign Travel: No Contact w/Someone Who Travel: No Recent Hopitalizations: No Immunizations Up To Date PED Vaccines UTD: No Date of Pneumonia Vaccine: Dec 26, 2015 Date of Influenza Vaccine: Jan 05, 2016 Seasonal Allergies Seasonal Allergies: No Past Medical History Surgeries: Yes Joint Replacement, Orthopedic Respiratory: No Pneumonia Cardiac: Yes Chronic Edema/Swelling, Coronary Artery Disease, High Cholesterol, Hypertension Neurological: Yes Stroke Reproductive Disorders: No Sexually Transmitted Disease: No HIV/AIDS: No Genitourinary: Yes Benign Prostatic Hyperpl, Prostate Problems Gastrointestinal: Yes Gastroesophageal Reflux Musculoskeletal: Yes Chronic Back Pain Endocrine: No HEENT: Yes Glaucoma Loss of Vision: Denies Hearing Impairment: Hard of Hearing Cancer: No Psychosocial: No Depression Integumentary: No Recent Skin Changes Blood Disorders: No Adverse Reaction/Blood Tranf: No Family Medical History Patient reports no known family medical history. No Pertinent Family Hx Physical Exam Vital Signs Vital Signs - First Documented 11/27/17 10:55 Temp 98.5 Pulse 83 Resp 22 B/P (MAP) 117/51 (73) Pulse Ox 96 O2 Delivery Room Air Capillary Refill : Height, Weight, BMI Height: 6'2.00" Weight: 241lbs. 0.0oz. 109.702138ga; 30.9 BMI Method:Stated General Appearance: no apparent distress, other (hemiplegic left) HEENT: PERRL/EOMI, pharynx normal Neck: non-tender, full range of motion, supple, normal inspection Respiratory: chest non-tender, lungs clear, normal breath sounds, no respiratory distress, no accessory muscle use Cardiovascular: normal peripheral pulses, regular rate, rhythm Peripheral Pulses: 2+ Radial Pulses (R), 2+ Radial Pulses (L) Gastrointestinal: normal bowel sounds, non tender, soft Neurologic/Psychiatric: alert, oriented x 3 Crainal Nerves: normal hearing, normal speech, PERRL Skin: normal color, warm/dry Stroke NIH Stroke Scale Assessment Select: Initial Level of Consciousness: 0=Alert (0), Level of Consciousness- Questions: 1=Answers one question (1), LOC Commands: 0=Performs both tasks (0), Gaze: Normal (0), Visual Salas: 0=No visual loss (0), Facial Movement (Facial Paresis): 0=Normal symmetrical mnt (0), Motor Function-Arms Right: 0=No drift (0 ), Motor Function-Arms Left: 4=No movement (4), Motor Function-Legs Right: 0=No drift (0), Motor Function-Legs Left: 4=No movement (4), Limb Ataxia: 1=Present in one limb (1), Sensory: 0=Normal:no loss (0), Best Language: 0=No aphasia (0) , Dysarthria: 0=Normal (0), Extinction & Inattention: 0=No abnormality (0), Total: 10 Stroke Thrombolytic Exclusion Age 18 or Over: Yes Acute intenal hemorrhage: No History of CVA: Yes Uncontrolled Coagulation Defec: No Intracranial Hemorrhage: No Severe Hypertension: No GI or Bleed: No Subarachnoid Hemorrhage: No Intracranial Neoplasm/Aneurysm: No Oral Anticoagulants: No Surgery or Trauma: No Puncture of Non-Compressible V: No Recent CPR: No Diabetic Hemorrhagic Retinopat: No Organ Biopsy: No Recent Obstetric Delivery: No Glucose: No (291) Significant Hepatic Dysfunctio: No NIH Stoke Scale >22: No Bacterial Endocarditis: No Pericarditis: No Improving Symptoms: No Platelets: No TPA Contraindication: Yes (Last known Well time?) IV - TPa Received IV - TPa Procedure Performed?: No Procedures/Interventions Suture Size: 5-0 Progress/Results/Core Measures Results/Orders Lab Results Laboratory Tests Test 11/27/17 10:43 11/27/17 10:47 11/27/17 12:06 Range/Units Glucometer 291 H 70-110 MG/DL White Blood Count 10.0 4.3-11.0 10^3/uL Red Blood Count 4.86 4.35-5.85 10^6/uL Hemoglobin 13.5 13.3-17.7 G/DL Hematocrit 41 40-54 % Mean Corpuscular Volume 85 80-99 FL Mean Corpuscular Hemoglobin 28 25-34 PG Mean Corpuscular Hemoglobin Concent 33 32-36 G/DL Red Cell Distribution Width 14.9 H 10.0-14.5 % Platelet Count 202 130-400 10^3/uL Mean Platelet Volume 10.9 H 7.4-10.4 FL Neutrophils (%) (Auto) 77 H 42-75 % Lymphocytes (%) (Auto) 9 L 12-44 % Monocytes (%) (Auto) 6 0-12 % Eosinophils (%) (Auto) 8 0-10 % Basophils (%) (Auto) 0 0-10 % Neutrophils # (Auto) 7.6 1.8-7.8 X 10^3 Lymphocytes # (Auto) 0.9 L 1.0-4.0 X 10^3 Monocytes # (Auto) 0.6 0.0-1.0 X 10^3 Eosinophils # (Auto) 0.8 H 0.0-0.3 10^3/uL Basophils # (Auto) 0.0 0.0-0.1 10^3/uL Sodium Level 140 135-145 MMOL/L Potassium Level 4.0 3.6-5.0 MMOL/L Chloride Level 107 98-107 MMOL/L Carbon Dioxide Level 18 L 21-32 MMOL/L Anion Gap 15 H 5-14 MMOL/L Blood Urea Nitrogen 21 H 7-18 MG/DL Creatinine 0.94 0.60-1.30 MG/DL Estimat Glomerular Filtration Rate > 60 BUN/Creatinine Ratio 22 Glucose Level 132 H 70-105 MG/DL Calcium Level 9.1 8.5-10.1 MG/DL Corrected Calcium 9.3 8.5-10.1 MG/DL Magnesium Level 2.3 1.8-2.4 MG/DL Total Bilirubin 1.1 H 0.1-1.0 MG/DL Aspartate Amino Transf (AST/SGOT) 18 5-34 U/L Alanine Aminotransferase (ALT/SGPT) 17 0-55 U/L Alkaline Phosphatase 83 40-136 U/L Troponin I < 0.30 <0.30 NG/ML Total Protein 7.2 6.4-8.2 GM/DL Albumin 3.7 3.2-4.5 GM/DL Urine Color YELLOW Urine Clarity SLIGHTLY CLOUDY Urine pH 5 5-9 Urine Specific Duarte 1.020 1.016-1.022 Urine Protein 1+ H NEGATIVE Urine Glucose (UA) NEGATIVE NEGATIVE Urine Ketones NEGATIVE NEGATIVE Urine Nitrite NEGATIVE NEGATIVE Urine Bilirubin 1+ H NEGATIVE Urine Urobilinogen 1 NORMAL MG/DL Urine Leukocyte Esterase 1+ H NEGATIVE Urine RBC (Auto) NEGATIVE NEGATIVE Urine RBC NONE /HPF Urine WBC RARE /HPF Urine Squamous Epithelial Cells RARE /HPF Urine Crystals PRESENT H /LPF Urine Calcium Oxalate Crystals FEW H /LPF Urine Bacteria NEGATIVE /HPF Urine Casts NONE /LPF Urine Mucus SMALL H /LPF Urine Culture Indicated NO My Orders Orders - BASSAM MO Cbc With Automated Diff (11/27/17 10:49) Comprehensive Metabolic Panel (11/27/17 10:49) Magnesium (11/27/17 10:49) Troponin I (11/27/17 10:49) Ua Culture If Indicated (11/27/17 10:49) Chest 1 View, Ap/Pa Only (11/27/17 10:49) Knee, Left, 3 Views (11/27/17 10:49) Ct Head/Cervical Spine Wo (11/27/17 10:49) Saline Lock/Iv-Start (11/27/17 10:49) Ns Iv 1000 Ml (Sodium Chloride 0.9%) (11/27/17 10:49) Ekg Tracing (11/27/17 10:49) Continuous Ekg Monitoring (11/27/17 10:49) Vital Signs/I&O 11/27/17 10:55 Temp 98.5 Pulse 83 Resp 22 B/P (MAP) 117/51 (73) Pulse Ox 96 O2 Delivery Room Air Progress Progress Note #1: Time: 11:57 Progress Note According to staff the patient's more lethargic than usual he didn't fall yesterday. Pertinent x-ray his head neck and left knee looking for trauma changes. According to the granddaughter he is at baseline since his stroke in September 2017. We'll check a urine specimen and some labs looking for evidence maybe of delirium. Since his knee pain he says is been using the hydrocodone every 4 hours [id number] sweats also possible that this is opiate related delirium. With his history of stroke and be difficult to recommend NSAIDs. He is not on a blood thinner. Progress Note #2: Time: 12:22 Progress Note Questionable fracture on x-ray but definitely point tenderness about it and it would make sense for his injury. We'll try and get the patient into a knee immobilizer however he does have some degree of contractures which may make this difficult. Initial ECG Impression Date: Nov 27, 2017 Initial ECG Impression Time: 10:55 Initial ECG Rate: 83 Initial ECG Rhythm: Normal Sinus Initial ECG Intervals: NE (232 ms) Initial ECG Intervals QTC 508 ms Initial ECG Impression: Nonspecific Changes, 1st Degree AV Block Initial ECG Comparisson: Unchanged Comment No ST elevation or depression. Diagnostic Imaging Diagonstic Imaging: CT (without contrast) Plain Films/CT/US/NM/MRI: c-spine, head Comments NAME: CHICO ALMODOVAR [facility] REC#: [id number] PT STATUS: REG ER : 1930 PHYSICIAN: BASSAM MO MD ADMIT DATE: 11/27/17/ER Draft Date of Exam:11/27/17 CT HEAD/CERVICAL SPINE WO PROCEDURE: CT head and CT cervical spine without contrast. TECHNIQUE: Multiple contiguous axial images were obtained through the brain and cervical spine without the use of intravenous contrast. Sagittal and coronal reformations through the cervical spine were then performed. INDICATION: Fell yesterday. Pain. History of previous stroke. No previous films for review. Findings: CT head without: There is a large area of encephalomalacia involving right middle cerebral artery distribution consistent with old infarct. There is no intracranial hemorrhage. No mass effect. There is diffuse cortical atrophy. There is ex vacuo dilatation of the right lateral ventricle. No shift of midline. The mastoid air cells and paranasal sinuses are clear. No evidence of calvarial fracture. IMPRESSION: 1. Findings of large old right middle cerebral artery infarct with no acute changes demonstrated. CT cervical spine: Sagittal and coronal reformatted images show good alignment. Body height is well maintained. There is loss of disc spaces throughout from C4-C7 with hypertrophic lipping of the endplate. There is no evidence of high-grade central stenosis. Facets show good alignment. There are no fractures. The atlantoaxial joint is normal. The surrounding soft tissues appear normal. IMPRESSION: Degenerative cervical disease without acute abnormality. Dictated on workstation # [id number] Dict: 11/27/17 1155 Trans: 11/27/17 1159 [facility] [id number] Interpreted by: ANGELITA CHRISTINA MD Electronically signed by: Reviewed: Reviewed by Pr Diagonstic Imaging: Xray Plain Films/CT/US/NM/MRI: chest (1v) Comments [place]IA [place], [place] NAME: CHICO ALMODOVAR [facility] REC#: [id number] PT STATUS: REG ER : 1930 PHYSICIAN: BASSAM MO MD ADMIT DATE: 11/27/17/ER Draft Date of Exam:11/27/17 CHEST 1 VIEW, AP/PA ONLY INDICATION: Stroke-like symptoms. Comparison with 01/12/2016. FINDINGS: Portable chest shows the lungs to be well aerated. There are some mild chronic changes noted in the right perihilar region. Left lung is clear. Heart is mildly enlarged. There is no evidence of pulmonary edema. No pneumothorax or pleural effusion. IMPRESSION: Chronic scarring in right perihilar region with no acute changes. Dictated on workstation # [id number] Dict: 11/27/17 1200 Trans: 11/27/17 1203 [facility] [phone] Interpreted by: ANGELITA CHRISTINA MD Electronically signed by: Reviewed: Reviewed by Me Diagonstic Imaging: Xray Plain Films/CT/US/NM/MRI: knee Comments [facility] [place], [place] NAME: CHICO ALMODOVAR [facility] REC#: [id number] PT STATUS: REG ER : 1930 PHYSICIAN: BASSAM MO MD ADMIT DATE: 11/27/17/ER Draft Date of Exam:11/27/17 KNEE, LEFT, 3 VIEWS INDICATION: Left knee pain. COMPARISON: None. FINDINGS: Three views of left knee demonstrate cortical defect in the medial metaphysis of the proximal tibia. This could be artifact. Please correlate clinically to exclude nondisplaced fracture. There is no overt joint effusion. No dislocation seen. Atherosclerosis is present. Mild to moderate tricompartment degenerative changes are present. IMPRESSION: Questionable fracture versus artifact of the proximal tibial metaphysis. Please correlate with point tenderness. Dictated on workstation # [id number] Dict: 11/27/17 1202 Trans: 11/27/17 1207 [place] [id number] Interpreted by: RIVKA SCOTT Electronically signed by: Reviewed: Reviewed by Me Departure Impression Primary Impression: Fall Qualified Codes: W19.XXXA - Unspecified fall, initial encounter Additional Impression: Closed fracture fibula, head Qualified Codes: S82.832A - Other fracture of upper and lower end of left fibula, initial encounter for closed fracture Disposition: 01 HOME, SELF-CARE Condition: Improved Departure-Patient Inst. Decision time for Depature: 12:48 Referrals: CHANDLER MITCHELL MD (PCP/Family) Primary Care Physician SUSAN PEREA MD Patient Instructions: Fibula Fracture (DC) Add. Discharge Instructions: Wear the knee immobilizer except for bathing. Use heating pads every 2 hours as needed for pain. Use creams such as icy hot or Aspercreme as needed for pain or spasms. Get a follow-up appointment with your primary care doctor discussed pain and spasm management. Follow up with Drs. Perea, orthopedic surgeon in 1-2 weeks to reexamine the knee. Copy Copies To 1: SUSAN PEREA MD, TITUS J Nov 27, 2017 10:53
[2017-11-27 10:59] LABS: BASOPHILS % (AUTO) 0 % (0-10); EOSINOPHILS # (AUTO) 0.8 10^3/uL (0.0-0.3); EOSINOPHILS % (AUTO) 8 % (0-10); HEMATOCRIT 41 % (40-54); HEMOGLOBIN 13.5 G/DL (13.3-17.7); LYMPHOCYTES # (AUTO) 0.9 X 10^3 (1.0-4.0); LYMPHOCYTES % (AUTO) 9 % (12-44); MEAN CORPUSCULAR HEMOGLOBIN 28 PG (25-34); MEAN CORPUSCULAR HGB CONC 33 G/DL (32-36); MEAN CORPUSCULAR VOLUME 85 FL (80-99); MEAN PLATELET VOLUME 10.9 FL (7.4-10.4); MONOCYTES # (AUTO) 0.6 X 10^3 (0.0-1.0); MONOCYTES % (AUTO) 6 % (0-12); NEUTROPHILS # (AUTO) 7.6 X 10^3 (1.8-7.8); NEUTROPHILS % (AUTO) 77 % (42-75); PLATELET COUNT 202 10^3/uL (130-400); RED BLOOD COUNT 4.86 10^6/uL (4.35-5.85); RED CELL DISTRIBUTION WIDTH 14.9 % (10.0-14.5)
[2017-11-27 11:17] LABS: ALANINE AMINOTRANSFERASE 17 U/L (0-55); ALBUMIN 3.7 GM/DL (3.2-4.5); ALKALINE PHOSPHATASE 83 U/L (40-136); BILIRUBIN,TOTAL 1.1 MG/DL (0.1-1.0); BUN/CREATININE RATIO 22; CALCIUM 9.1 MG/DL (8.5-10.1); CARBON DIOXIDE 18 MMOL/L (21-32); CHLORIDE 107 MMOL/L (98-107); CREATININE SERUM 0.94 MG/DL (0.60-1.30); GFR ESTIMATED > 60; GLUCOSE 132 MG/DL (70-105); MAGNESIUM 2.3 MG/DL (1.8-2.4); SODIUM 140 MMOL/L (135-145); TOTAL PROTEIN 7.2 GM/DL (6.4-8.2)
--- NOTE | 2017-11-27 12:00 | Diagnostic Imaging Report ---
PROCEDURE: CT head and CT cervical spine without contrast. TECHNIQUE: Multiple contiguous axial images were obtained through the brain and cervical spine without the use of intravenous contrast. Sagittal and coronal reformations through the cervical spine were then performed. INDICATION: Fell yesterday. Pain. History of previous stroke. No previous films for review. Findings: CT head without: There is a large area of encephalomalacia involving right middle cerebral artery distribution consistent with old infarct. There is no intracranial hemorrhage. No mass effect. There is diffuse cortical atrophy. There is ex vacuo dilatation of the right lateral ventricle. No shift of midline. The mastoid air cells and paranasal sinuses are clear. No evidence of calvarial fracture. IMPRESSION: 1. Findings of large old right middle cerebral artery infarct with no acute changes demonstrated. CT cervical spine: Sagittal and coronal reformatted images show good alignment. Body height is well maintained. There is loss of disc spaces throughout from C4-C7 with hypertrophic lipping of the endplate. There is no evidence of high-grade central stenosis. Facets show good alignment. There are no fractures. The atlantoaxial joint is normal. The surrounding soft tissues appear normal. IMPRESSION: Degenerative cervical disease without acute abnormality. Dictated by: Dictated on workstation # [id number]
--- NOTE | 2017-11-27 12:04 | Diagnostic Imaging Report ---
INDICATION: Stroke-like symptoms. Comparison with 01/12/2016. FINDINGS: Portable chest shows the lungs to be well aerated. There are some mild chronic changes noted in the right perihilar region. Left lung is clear. Heart is mildly enlarged. There is no evidence of pulmonary edema. No pneumothorax or pleural effusion. IMPRESSION: Chronic scarring in right perihilar region with no acute changes. Dictated by: Dictated on workstation # [id number]
--- NOTE | 2017-11-27 12:08 | Diagnostic Imaging Report ---
INDICATION: Left knee pain. COMPARISON: None. FINDINGS: Three views of left knee demonstrate cortical defect in the medial metaphysis of the proximal tibia. This could be artifact. Please correlate clinically to exclude nondisplaced fracture. There is no overt joint effusion. No dislocation seen. Atherosclerosis is present. Mild to moderate tricompartment degenerative changes are present. IMPRESSION: Questionable fracture versus artifact of the proximal tibial metaphysis. Please correlate with point tenderness. Dictated by: Dictated on workstation # [id number]
[2017-11-27 12:20] LABS: CLARITY,URINE SLIGHTLY CLOUDY; COLOR,URINE YELLOW; GLUCOSE, URINE (UA) NEGATIVE (NEGATIVE); KETONES,URINE NEGATIVE (NEGATIVE); LEUKOCYTE ESTERASE ,URINE 1+ (NEGATIVE); NITRITE,URINE NEGATIVE (NEGATIVE); PH,URINE 5 (5-9); PROTEIN,URINE 1+ (NEGATIVE); UROBILINOGEN,URINE 1 MG/DL (NORMAL)
[2017-11-27 12:34] LABS: BILIRUBIN,URINE 1+ (NEGATIVE)
[2017-11-27 12:35] LABS: BACTERIA,URINE NEGATIVE /HPF; CALCIUM OXALATE CRYSTALS,UR FEW /LPF; SQUAMOUS EPITHELIAL CELL,UR RARE /HPF; WBC,URINE RARE /HPF
[2017-11-27 12:50] VITALS: BP 117/51
== END 2017-11-27 12:50 | disposition home or self-care (01) ==
LOC: EDUNIT# 10:36 → ER 10:37
DX: S82.832A Other fracture of upper and lower end of left fibula, initial encounter for closed fracture (principal); I25.10 Atherosclerotic heart disease of native coronary artery without angina pectoris; I10 Essential (primary) hypertension; E78.00 Pure hypercholesterolemia, unspecified; K21.9 Gastro-esophageal reflux disease without esophagitis; F32.9 Major depressive disorder, single episode, unspecified; Z87.01 Personal history of pneumonia (recurrent); Z86.73 Personal history of transient ischemic attack (TIA), and cerebral infarction without residual deficits; Z79.82 Long term (current) use of aspirin; Z79.51 Long term (current) use of inhaled steroids; W06.XXXA Fall from bed, initial encounter; Y92.129 Unspecified place in nursing home as the place of occurrence of the external cause
CPT/HCPCS: 36415; 51701; 70450; 71045; 72125; 73562; 80053; 81000; 82962; 83735; 84484; 85025; 93005; 96360

== ENCOUNTER → 2018-06-16 | Outpatient (CLI) | payer MEDICARE ==
[2018-06-16 19:30] LABS: BILIRUBIN,URINE NEGATIVE (NEGATIVE); CLARITY,URINE CLEAR; COLOR,URINE AMBER; GLUCOSE, URINE (UA) NEGATIVE (NEGATIVE); KETONES,URINE NEGATIVE (NEGATIVE); LEUKOCYTE ESTERASE ,URINE 1+ (NEGATIVE); NITRITE,URINE NEGATIVE (NEGATIVE); PH,URINE 5 (5-9); PROTEIN,URINE NEGATIVE (NEGATIVE); UROBILINOGEN,URINE 1 MG/DL (NORMAL)
[2018-06-16 19:42] LABS: BACTERIA,URINE FEW /HPF
== END ==
LOC: LABNPT 19:23
PROVIDERS: ATTEND Internal Medicine
DX: R35.0 Frequency of micturition (principal); R41.0 Disorientation, unspecified; R82.998 Other abnormal findings in urine
CPT/HCPCS: 81000; 87088

== ENCOUNTER 2018-08-16 13:00 | Emergency (ER) | payer MEDICARE ==
[~2018-08-16] VITALS: Ht 177.8 cm; Wt 99.8 kg
[2018-08-16] MEDS ORDERED: NS IV 1000 ML 1,000 ML IV ONE (13:12)
[2018-08-16 13:29] LABS: HEMATOCRIT 42 % (40-54); HEMOGLOBIN 13.7 G/DL (13.3-17.7); LYMPHOCYTES % (AUTO) 6 % (12-44); MEAN CORPUSCULAR HEMOGLOBIN 28 PG (25-34); MEAN CORPUSCULAR HGB CONC 33 G/DL (32-36); MEAN CORPUSCULAR VOLUME 86 FL (80-99); MEAN PLATELET VOLUME 11.1 FL (7.4-10.4); NEUTROPHILS % (AUTO) 83 % (42-75); PLATELET COUNT 185 10^3/uL (130-400); RED CELL DISTRIBUTION WIDTH 14.1 % (10.0-14.5); WHITE BLOOD COUNT 18.6 10^3/uL (4.3-11.0)
[2018-08-16 13:30] LABS: BASOPHILS % (AUTO) 0 % (0-10); EOSINOPHILS # (AUTO) 0.1 10^3/uL (0.0-0.3); EOSINOPHILS % (AUTO) 1 % (0-10); LYMPHOCYTES # (AUTO) 1.1 X 10^3 (1.0-4.0); MONOCYTES # (AUTO) 1.9 X 10^3 (0.0-1.0); MONOCYTES % (AUTO) 10 % (0-12); NEUTROPHILS # (AUTO) 15.4 X 10^3 (1.8-7.8)
--- NOTE | 2018-08-16 13:30 | NUR ---
PT CAME IN BY [facility] WITH ONLY ONE SHOE ON.
[2018-08-16 13:43] LABS: LYMPHOCYTES % (MANUAL) 5 %; MONOCYTES % (MANUAL) 9 %; NEUTROPHILS % (MANUAL) 84 %
[2018-08-16 13:44] LABS: EOSINOPHILS % (MANUAL) 2 %; INR 1.2 (0.8-1.4); PROTHROMBIN TIME PATIENT 15.2 SEC (12.2-14.7); RBC MORPH NORMAL
[2018-08-16 13:49] LABS: ALANINE AMINOTRANSFERASE 10 U/L (0-55); ALKALINE PHOSPHATASE 98 U/L (40-136); AMYLASE 48 U/L (25-125); BILIRUBIN,TOTAL 1.2 MG/DL (0.1-1.0); BUN/CREATININE RATIO 14; CALCIUM 9.3 MG/DL (8.5-10.1); CARBON DIOXIDE 22 MMOL/L (21-32); CHLORIDE 107 MMOL/L (98-107); CREATININE SERUM 0.88 MG/DL (0.60-1.30); GFR ESTIMATED > 60; GLUCOSE 123 MG/DL (70-105); LIPASE 7 U/L (8-78); MAGNESIUM 2.1 MG/DL (1.8-2.4); SODIUM 140 MMOL/L (135-145); TOTAL PROTEIN 7.5 GM/DL (6.4-8.2)
--- NOTE | 2018-08-16 13:52 | Diagnostic Imaging Report ---
INDICATION: Weakness and decreased level of consciousness. Portable chest at 01:36 p.m. FINDINGS: Heart size and pulmonary vascularity are normal. Lungs are clear. There are no effusions or pneumothoraces. IMPRESSION: Negative chest. Dictated by: Dictated on workstation # [id number]
--- NOTE | 2018-08-16 14:04 | Diagnostic Imaging Report ---
PROCEDURE: CT head wo r/o stroke. TECHNIQUE: Multiple contiguous axial images were obtained through the brain without the use of intravenous contrast. Auto Exposure Controls were utilized during the CT exam to meet ALARA standards for radiation dose reduction. INDICATION: Weakness and decreased level of consciousness. COMPARISON: Study compared with previous head CT 11/27/2017. FINDINGS: Old right hemispheric encephalomalacia and volume loss on presumed remote post ischemic basis is unchanged. There is compensatory prominence of the right hemispheric extra-axial subarachnoid CSF spaces. There is no hemorrhage and no edema, mass, or mass effect. No evidence for elevated pressures. The basilar cisterns are patent. No focal or generalized cerebral edema. No acute finding or change. IMPRESSION: 1. Old volume loss on a presumed post ischemic basis in the right hemisphere stable and chronic. 2. No hemorrhage, edema, or acute finding. Dictated by: Dictated on workstation # [id number]
[2018-08-16 14:09] LABS: TSH (THYROID ANALYZER) 1.26 UIU/ML (0.35-4.94)
[2018-08-16 14:40] LABS: BILIRUBIN,URINE NEGATIVE (NEGATIVE); CLARITY,URINE VERY CLOUDY; COLOR,URINE AMBER; GLUCOSE, URINE (UA) NEGATIVE (NEGATIVE); KETONES,URINE 1+ (NEGATIVE); LEUKOCYTE ESTERASE ,URINE 3+ (NEGATIVE); NITRITE,URINE NEGATIVE (NEGATIVE); PH,URINE 5 (5-9); PROTEIN,URINE 1+ (NEGATIVE); UROBILINOGEN,URINE NORMAL (NORMAL)
[2018-08-16 14:49] LABS: BACTERIA,URINE MODERATE /HPF; RBC,URINE 0-2 /HPF; WBC,URINE TNTC /HPF
[2018-08-16] MEDS ORDERED: cefTRIAXone FOR IV USE 1,000 MG in WATER (STERILE) FOR INJECTION 10 ML IV ONE (15:00)
[2018-08-16] MEDS ORDERED: LACTATED RINGERS 1,000 ML IV ONE (15:57)
--- NOTE | 2018-08-16 16:30 | NUR ---
PT'S DPOA, PEYTON BAILEY, CALLED THE ER AND THIS RN MADE HER AWARE OF THE SITUATION AND THE NEED FOR THE PT TO BE TRANSFERED TO [facility].
[2018-08-16 16:45] VITALS: BP 136/64
--- NOTE | 2018-08-29 05:15 | ED General ---
General Chief Complaint: General Problems/Pain Stated Complaint: WEAKNESS/DEC LOC Nursing Triage Note: PT TO RM 1 BY [facility] EMS FROM [facility] WITH CC OF WEAKNESS, PT UNABLE TO STAY AWAKE. Nursing Sepsis Screen: No Definite Risk Source of Information: Patient (LIMITED HISTORIAN), EMS, [facility] Records History of Present Illness Date Seen by Provider: August 16, 2018 Time Seen by Provider: 13:00 Initial Comments PT ARRIVES VIA EMS FROM [facility] WAS CALLED FOR PT WITH GENERALIZED WEAKNESS, DROOLING, DECREASED LEVEL OF CONSCIOUSNESS LAST KNOWN WELL TIME IS UNKNOWN, BUT POSSIBLY LAST NIGHT AT [facility] REPORTED TO EMS THAT PT HAS BEEN "SLEEPY" BUT THEY ALSO REPORT THAT PT'S NORMAL BASELINE IS "SLEEPY" PT REPORTEDLY HAS HAD DECREASED APPETITE FOR THE LAST 4 DAYS PT REPORTEDLY HAS HAD COUGH AND CONGESTION NO OTHER INFORMATION IS OBTAINABLE FROM LONG TERM EMS REPORT THAT PT WAS VERY DIAPHORETIC AND WAS INCONTINENT OF URINE WHEN THEY ARRIVED AT SCENE ON DIRECT QUESTIONING OF PT, HE STATES HE DOES HAS NOT BEEN FEELING BAD DENIES CHEST PAIN DENIES SHORTNESS OF BREATH DENIES NAUSEA/VOMITING OR DIARRHEA OR ABDOMINAL PAIN STATES HE HAD LEG CRAMPS BEFORE EATING BREAKFAST, BUT NOT NOW. NO OTHER INFORMATION IS OBTAINABLE PT IS DNR PCP: DR. MITCHELL Allergies and Home Medications Allergies Coded Allergies: No Known Drug Allergies (Unverified , 08/15/14) Home Medications Acetaminophen 325 Mg Tablet, 650 MG PO Q4H PRN for PAIN-MILD OR TEMPATURE, (Reported) Aspirin 81 Mg Tablet.dr, 81 MG PO DAILY, (Reported) Baclofen 10 Mg Tablet, 10 MG PO 0800,1999, (Reported) Baclofen 10 Mg Tablet, 5 MG PO 1399,1999, (Reported) TAKES 1/2 (10MG) TABLET Cefdinir 300 Mg Capsule, 300 MG PO TWICE A DAY Prescribed by: BRENDAN RUSH on 08/23/17 1228 Diphenhydramine HCl 25 Mg Capsule, 25 MG PO Q6H PRN for HIVES/ITCH/RASH, (Reported) Docusate Sodium 100 Mg Capsule, 100 MG PO BID, (Reported) Dorzolamide HCl 10 Ml Drops, 1 DROP OU BID, (Reported) Famotidine 20 Mg Tablet, 20 MG PO DAILY, (Reported) Fexofenadine HCl 180 Mg Tablet, 180 MG PO DAILY, (Reported) Fluoxetine HCl 10 Mg Capsule, 30 MG PO HS, (Reported) TAKES 3 (10MG) CAPSULES Fluticasone Propionate 16 Gm [place].susp, 2 SPRAYS NS DAILY, (Reported) Furosemide 20 Mg Tablet, 20 MG PO DAILY, (Reported) Gabapentin 300 Mg Capsule, 300 MG PO TID, (Reported) Hydrocodone/Acetaminophen 1 Each Tablet, 1 TAB PO Q4H PRN for PAIN-MODERATE, (Reported) Latanoprost 2.5 Ml Drops, 1 DROP OU HS, (Reported) Magnesium Hydroxide 400 Mg/5 Ml Oral.susp, 45 ML PO Q12H PRN for CONSTIPATION- 7TH LINE, (Reported) Polyethylene Glycol 3350 17 Gm Powd.pack, 17 GM PO DAILY PRN for CONSTIPATION- 1ST LINE, (Reported) Potassium Chloride 10 Meq Capsule.er, 10 MEQ PO DAILY, (Reported) Simvastatin 80 Mg Tablet, 80 MG PO HS, (Reported) Tamsulosin HCl 0.4 Mg Cap.er.24h, 0.4 MG PO HS, (Reported) Timolol Maleate 5 Ml Drop.daily, 1 DROP OU BID, (Reported) 0.5% Triamcinolone Acet 15 Gm Cr, TP BID PRN for RASH, (Reported) Zinc Oxide 57 Gm Oint...g., TP BID PRN for REDNESS, (Reported) Patient Home Medication List Home Medication List Reviewed: Yes Review of Systems Review of Systems Constitutional: see HPI, malaise, weakness Respiratory: cough; No short of breath Cardiovascular: No chest pain Gastrointestinal: loss of appetite; No vomiting Genitourinary: incontinence Psychiatric/Neurological: See HPI; Denies Headache Past Cgfyxtb-[id number]-Thpxhr Hx Patient Social History Alcohol Use: Denies Use Recreational Drug Use: No Smoking Status: Unknown if Ever Smoked Recent Foreign Travel: No Contact w/Someone Who Travel: No Recent Infectious Disease Expo: No Recent Hopitalizations: No Immunizations Up To Date Tetanus Booster (TDap): Unknown PED Vaccines UTD: No Date of Pneumonia Vaccine: Dec 26, 2015 Date of Influenza Vaccine: Jan 05, 2016 Seasonal Allergies Seasonal Allergies: No Past Medical History Surgeries: Yes Joint Replacement, Orthopedic Respiratory: Yes Pneumonia Cardiac: Yes (CHF; CEREBROVASCULAR DISEASE) Atrial Fibrillation, Chronic Edema/Swelling, Coronary Artery Disease, High Cholesterol, Hypertension Neurological: Yes (SPASTIC HEMIPLEGIA) Neuropathy, Stroke Reproductive Disorders: No Sexually Transmitted Disease: No HIV/AIDS: No Genitourinary: Yes Benign Prostatic Hyperpl, Prostate Problems Gastrointestinal: Yes Gastroesophageal Reflux, Chronic Constipation, Hemorrhoids, Ulcer Musculoskeletal: Yes (CHRONIC PAIN; SPASMS) Chronic Back Pain Endocrine: No HEENT: Yes Glaucoma Loss of Vision: Denies Hearing Impairment: Hard of Hearing Cancer: No Psychosocial: Yes Depression Integumentary: Yes (TINEA PEDIS) Blood Disorders: No Adverse Reaction/Blood Tranf: No Family Medical History Patient reports no known family medical history. No Pertinent Family Hx Physical Exam Vital Signs Capillary Refill : Less Than 3 Seconds Height, Weight, BMI Height: 5'10.00" Weight: 220lbs. 0.0oz. 99.877869wm; 30.9 BMI Method:Estimated General Appearance: Other (PT DROWSY, FALLS ASLEEP MID-SENTENCE, LETHARGIC, MILDLY DYSPNEIC) Neck: Normal Inspection Respiratory: Decreased Breath Sounds, Other (MILDLY DYSPNEIC) Cardiovascular: No JVD, No Murmur, Irregularly Irregular Gastrointestinal: Non Tender, Soft Extremity: Normal Capillary Refill, Non Tender, No Pedal Edema Neurologic/Psychiatric: Other ( ABOVE; LEFT SIDED WEAKNESS--OLD/PRIOR CVA) Skin: Warm/Dry Procedures/Interventions Suture Size: 5-0 Progress/Results/Core Measures Suspected Sepsis Recent Fever Within 48 Hours: No Infection Criteria Present: Suspected New Infection New/Unexplained Altered Menta: Yes Sepsis Screen: No Definite Risk SIRS Temperature:98.8 Pulse: 78 Respiratory Rate: 22 Blood Pressure 136 /64 Mean: 88 Results/Orders Vital Signs/I&O Capillary Refill : Less Than 3 Seconds Blood Pressure Mean: 88 Progress Note : Progress Note NO DETERIORATION IN PT'S CONDITION DURING ER STAY ECG Initial ECG Impression Date: August 16, 2018 Initial ECG Impression Time: 13:12 Initial ECG Rate: 87 Initial ECG Rhythm: A Fib/Flutter Initial ECG Comparisson: No Previous ECG Available Diagnostic Imaging Comments CXR--NO ACUTE PROCESS CT HEAD--NO ACUTE PROCESS, 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 LERMA, ACCEPTS PT FOR ADMIT/TRANSFER Impression Primary Impression: Sepsis Additional Impressions: UTI (urinary tract infection) Altered mental status Disposition: 02 XFER SHT-TRM HOSP Condition: Stable Transfer Transfer Facility: [facility] Method of Transfer: EMS Departure-Patient Inst. Referrals: CHANDLER MITCHELL MD (PCP) Primary Care Physician RUSSELL CAPONE DO Aug 29, 2018 05:15
== END 2018-08-16 16:45 | disposition short-term general hospital (02) ==
LOC: EDUNIT# 13:00 → ER 13:01
DX: A41.9 Sepsis, unspecified organism (principal); N39.0 Urinary tract infection, site not specified; R41.82 Altered mental status, unspecified; I11.0 Hypertensive heart disease with heart failure; I50.9 Heart failure, unspecified; E78.00 Pure hypercholesterolemia, unspecified; I25.10 Atherosclerotic heart disease of native coronary artery without angina pectoris; I48.91 Unspecified atrial fibrillation; K21.9 Gastro-esophageal reflux disease without esophagitis; F32.9 Major depressive disorder, single episode, unspecified; Z87.438 Personal history of other diseases of male genital organs; Z87.19 Personal history of other diseases of the digestive system; Z86.73 Personal history of transient ischemic attack (TIA), and cerebral infarction without residual deficits; Z79.82 Long term (current) use of aspirin; Z79.51 Long term (current) use of inhaled steroids; Z87.01 Personal history of pneumonia (recurrent)
CPT/HCPCS: 36415; 70450; 71045; 80053; 81000; 82150; 83605; 83690; 83735; 83880; 84443; 84484; 85007; 85027; 85610; 85730; 87040; 87077; 87088; 87186; 87804; 93005; 93041; 96361; 96374